=== PATIENT | male | born 1965 | race Caucasian/White ===

== ENCOUNTER → 2017-10-31 | Outpatient (CLI) | payer MEDICARE, MEDICAID ==
[~2017-10-31] MED LIST: ACE3 PO; ACET500T68 PO; ADAL40PE4 SQ; ALBU8.5H IH; ALL300 PO; ALPR-460 PO; AMOX-362 PO; BACOUD TP; CALC1TAB24 PO; CARB1DRO2 OP; CEPH250C37 PO; CETY454C2 TP; CHOL10005 PO; CHOL200021 PO; CIPR3.5O4 OP; CLOB15CR22 TP; DOXY-179 PO; ENBREL INJECTION; GUAI600T57 PO; HYDR28.415 TP; IBUP100T46 PO; KET10 PO; LEVO100T95 PO; LEVO88TA45 PO; LOPE-109 PO; LYTE60SP MM; MENT118G; METH454P5 PO; MULT-991 PO; MULTIVITAMIN PO; NAPR220C11 PO; OMEG300C PO; PER PO; PETR18JE TP; SODI30SP6 NS; [UNRECOGNIZED DRUG - CODE] MC; [UNRECOGNIZED DRUG - CODE] PO; vit d
--- NOTE | 2017-10-31 10:25 | RADIOLOGY IMAGING REPORT ---
[place] [facility] [place]IENT NAME: Jayden Bhatti : 1965 MR: [id number] V: [id number] EXAM DATE: ORDERING PHYSICIAN: CYNDEE ROMAN TECHNOLOGIST: Location: [facility] [place] Patient: Jayden Bhatti : 1965 Visit/Account:[id number] Date of Sevice: 10/31/2017 EXAMINATION: Abdominal ultrasound complete HISTORY: Abdominal pain. COMPARISON: November 18, 2016 FINDINGS: Gallbladder: There are numerous mobile gallstones within the gallbladder. Gallbladder wall does not appear thickened measuring 2.2 mm in thickness. There is a negative Bah sign by technologist teagana tinadya. Liver: Negative. Common duct: Normal measuring 3.2 mm. Pancreas: Negative. Spleen: There is several echogenic masses within the spleen. The largest measures 1.3 cm in diamete r measuring 7.7 cm in length. Kidneys: Normal in size and echogenicity, the right measures 10.6 cm in length, and the left 10.3 cm . No hydronephrosis. Upper abdominal aorta and IVC: Negative. Ascites: Just to the right and superior to the umbilicus is a subcutaneous mass like region measuring 5.1 x 3. 2 x 4.9 cm. This is of mixed echogenicity. On the Valsalva maneuver there appear to be some interna l movement. This could represent a ventral hernia now containing bowel. Other mass lesions not excl uded This area appears slightly increased in size when compared to the prior study. Further evaluati on with CT of the abdomen is recommended for further evaluation. IMPRESSION: Cholelithiasis although no evidence of biliary ductal dilatation Several echogenic masses are seen within the spleen the largest measuring 1.3 cm in diameter. This c ould represent hemangiomas although short-term interval follow-up recommended There is a mass of mixed echogenicity in the subcutaneous soft tissues just superior to the right of the umbilicus measuring 5.1 x 3.2 x 4.9 cm. There appear to be some internal motion on the Valsalva maneuver. This could represent a ventral hernia now containing bowel. Other mass lesions not exclud ed Given the interval change in the prior study CT of abdomen is recommended for further evaluation Report Dictated By: Cookie Piedra MD at 10/31/2017 10:14 AM Report E-Signed By: Cookie Piedra MD at 10/31/2017 10:22 AM WSN:[email or web address]
== END ==
LOC: US 08:51
PROVIDERS: ATTEND Nurse Practitioner Family
DX: K80.70 Calculus of gallbladder and bile duct without cholecystitis without obstruction (principal)
CPT/HCPCS: 76700

== ENCOUNTER 2017-12-16 00:14 | Day surgery (SDC) | payer MEDICARE, MEDICAID ==
[2017-12-16] VITALS (7 sets, daily range): BP systolic 88–106; BP diastolic 65–77
[~2017-12-16] VITALS: Ht 160 cm; Wt 65.8 kg
[~2017-12-16 00:14] MED LIST changes: +ALB18R INH
[2017-12-16] MEDS ORDERED: ROPIVACAINE 0.2% 20 ML VIAL ONE ×2 (06:54→09:11)
[2017-12-16] MEDS ORDERED: fentaNYL CITR 100 MCG/2 ML AMP ONE (07:02)
[2017-12-16] MEDS ORDERED: PROPOFOL EMUL(*) 10MG/ML 20 ML 20 ML ONE (07:03)
[2017-12-16] MEDS ORDERED: ONDANSETRON 4 MG/2 ML VIAL ONE (07:03)
[2017-12-16] MEDS ORDERED: DEXAMETHASONE SOD 4 MG/ML VIAL ONE (07:03)
[2017-12-16] MEDS ORDERED: LIDOCAINE MPF 1% 5 ML VIAL ONE (07:03)
[2017-12-16 07:21] LABS: PLATELET COUNT, AUTOMATED 228 K/uL (150-450)
--- NOTE | 2017-12-16 07:25 | General Surgery 1 H&P ---
History of Present Illness Chief Complaint heartburn and lump above the umbilicus History of Present Illness 52 yo male with down's syndrome , sleep apnea and hiatal hernia repair presents with heartburn and a lump above the umbilicus. he had an ultrasound which revealed 2 hernias above the umbilicus. this hernia is causing him some pain. History Other Past Surgeries: hiatal hernia repair. hernia repair Home Meds Reported Medications Albuterol Sulfate (VENTOLIN HFA) 18 Gm Inh, 1-2 PUFF INH PRN Y for SHORTNESS OF BREATH, INH 12/10/17 Cholecalciferol (Vitamin D3) (VITAMIN D3) 1,000 Unit Tablet, 2000 UNIT PO DAILY , TAB 05/02/16 Petrolatum,White (VASELINE) 18 Ml Jelly.ml., 18 ML TP BID 05/02/16 Sodium Chloride (SALINE NASAL SPRAY) 30 Ml [place], 30 ML NS TID, SPRAY 05/02/16 Sodium Chloride (SALINE NASAL SPRAY) 30 Ml [place], 30 ML NS, SPRAY 05/02/16 Guaifenesin/D-Methorphan Hb/Pe (ROBAFEN CF LIQUID) 118 Ml Liquid, 5 ML PO PRN Y for CONGESTION 05/02/16 Carboxymethyl/Gly/Poly80/Pf (REFRESH OPTIVE ADVANCED DROPS) 1 Each Droperette, 1 EACH OP DIRECTED 05/02/16 [place] Oil (OLIVE OIL) 480 Ml Oil, 480 ML MC DAILY 05/02/16 Lytes/Yerba Yasemin (MOUTHKOTE SOLUTION) 60 Ml [place], 60 ML MM TID, SPRAY 05/02/16 Ibuprofen (IBUPROFEN) 100 Mg Tab.chew, 2 TAB PO Q6H Y for PAIN, TAB.CHEW 05/02/16 Hydrocortisone/Aloe Vera (HYDROCORTISONE 1% OINTMENT) 28 Gm Oint...g., 28 GM TP 05/02/16 Multivitamin (GUMMI BEAR MULTIVITAMIN) 1 Each Tab.chew, 1 EACH PO DAILY, TAB.CHEW 05/02/16 [place]-3 Fatty Acids (FISH OIL) 300 Mg Capsule, 300 MG PO DAILY, CAPSULE 05/02/16 Methylcellulose (With Sugar) (CITRUCEL POWDER) 454 Gm Powder, 454 GM PO DAILY 05/02/16 Cetyl Alc/Stearyl Alc/Pg/Sls (CETAPHIL CREAM) 454 Gm Cream..g., 454 GM TP 05/02/16 Menthol (BIOFREEZE) 118 Ml Gel..ml. 05/02/16 Bacitracin (BACITRACIN ZINC) 0.9 Gm Oint, 0.9 GM TP PRN Y for RASH 05/02/16 Loperamide Hcl (ANTI-DIARRHEAL) 2 Mg Tablet, 2 TAB PO PRN Y for DIARRHEA 05/02/16 Calcium Carbonate/Mag Hydrox (ANTACID CHEWABLE TABLET) 1 Each Tab.chew, 2 EACH PO PRN Y for HEARTBURN, TAB.CHEW 05/02/16 Amoxicillin (AMOXICILLIN) 500 Mg Capsule, 4 CAP PO DIRECTED, #15 CAPSULE 05/02/16 Acetaminophen (TYLENOL EXTRA STRENGTH) 500 Mg Tablet, 1000 MG PO PRN Y for PAIN , TAB 05/02/16 Guaifenesin (MUCINEX) 600 Mg Tablet.er, 1 TAB PO PRN 04/11/16 Levothyroxine Sodium (LEVOTHYROXINE SODIUM) 88 Mcg Tablet, 88 MCG PO QDAY 03/26/16 Naproxen Sodium (NAPROXEN SODIUM) 220 Mg Capsule, 220 MG PO TID, CAPSULE 07/20/13 Allopurinol (ZYLOPRIM 300 MG TAB (OR EQUIV)) 300 Mg Tablet, 300 MG PO QDAY 07/20/13 Adalimumab (HUMIRA) 40 Mg/0.8 Ml Pen.ij.kit, 40 MG SQ every other week 07/20/13 Alprazolam (ALPRAZOLAM) 0.5 Mg Tab.rapdis, 0.5 MG PO PRN 07/20/13 Discontinued Reported Medications Clobetasol Propionate/Emoll (CLOBETASOL EMOLLIENT 0.05% CRM) 15 Gm Cream..g., 0 TP BID 05/02/16 Ciprofloxacin Hcl (CILOXAN) 3.5 Gm Oint...g., 3.5 GM OP HS 05/02/16 Discontinued Scripts Oxycodone/Acetaminophen (OXYCODONE/ACETAMINOPHEN 5MG/325 MG) 5 Mg/325 Mg Tab, 1 TAB PO Q4H Y for MODERATE PAIN, #30 TAB 0 Refills Prov:STEPHANIE PUGH MD 05/17/16 Doxycycline Hyclate (DOXYCYCLINE HYCLATE) 100 Mg Tablet, 100 MG PO BID, #0 TAB Prov:RICHARD COX MD 04/12/16 Allergies: Coded Allergies: latex (Verified Allergy, Unknown, 03/26/16) Review of Systems History of Hypertension?: No History of Diabetes?: No History of DVT?: No Obstructive Sleep Apnea?: Yes History of Liver Disease?: No History of Kidney Disease?: No Other ROS Findings: gout, down's syndrome Exam General Appearance: Alert, Awake, No Acute Distress Cardiovascular: Regular Rate and Rhythm Respiratory: Clear to Auscultation GI: Other (nonreducilbe mass above the umbilicus.) Assessment and Plan Problems: (1) Incarcerated epigastric hernia Assessment & Plan: repair hernia with mesh (2) Heartburn Assessment & Plan: egd Copies to: ROWAN DAN MD; CYNDEE ROMAN Venous Thromboembolism Antithrombotics Is Pt On Any Antithrombotics?: No ROWAN DAN MD Dec 16, 2017 07:25
[2017-12-16] MEDS ORDERED: LIDOCAINE/SOD BICARB 8.4% SYR ID ONE (07:40)
[2017-12-16] MEDS ORDERED: MIDAZOLAM 2 MG/2 ML VIAL IVP PRN (07:40)
[2017-12-16] MEDS ORDERED: NORMOSOL R SOLN(*) 1000 ML BAG 1,000 ML IV PRN (07:40)
[2017-12-16] MEDS ORDERED: ceFAZolin(*) 2GM/D5W 50ML 50 ML IVPB ONE (07:55)
--- NOTE | 2017-12-16 08:23 | Post Operative Progress Note ---
Post Operative Progress Note Date: Dec 16, 2017 Time: 09:38 Surgeon: keisha Anesthesia: dr mullen Pre-Op Diagnosis: heartburn, incarcerated epigastric hernia Post-Op Diagnosis: poor esophageal emptying, incarcerated epigastric hernia Procedure(s): egd and repair of incarcerated epigastric hernia with mesh ROWAN DAN MD Dec 16, 2017 08:23
[2017-12-16] MEDS ORDERED: HYDR-4309 PO (08:25)
[2017-12-16] MEDS ORDERED: PANT40TA65 PO (08:25)
--- NOTE | 2017-12-16 08:26 | Short(Outpt) Discharge Summary ---
Discharge Summary Reason for Hosp/Final Diag: (1) Incarcerated epigastric hernia Hospital Course & Plan: repair hernia with mesh 8 cm [place] (2) Heartburn Hospital Course & Plan: egd poor esophageal emptying Departure Discharge to: Home Discharge Instructions Home Meds Active Scripts Hydrocodone Bit/Acetaminophen (NORCO 5-325 TABLET) 1 Each Tablet, 1 EACH PO Q4H Y for PAIN, #30 TAB Prov:ROWAN DAN MD 12/16/17 Pantoprazole Sodium (PANTOPRAZOLE SODIUM) 40 Mg Tablet.dr, 40 MG PO QDAY, #60 TAB.SR 3 Refills Prov:ROWAN DAN MD 12/16/17 Reported Medications Albuterol Sulfate (VENTOLIN HFA) 18 Gm Inh, 1-2 PUFF INH PRN Y for SHORTNESS OF BREATH, INH 12/10/17 Cholecalciferol (Vitamin D3) (VITAMIN D3) 1,000 Unit Tablet, 2000 UNIT PO DAILY , TAB 05/02/16 Petrolatum,White (VASELINE) 18 Ml Jelly.ml., 18 ML TP BID 05/02/16 Sodium Chloride (SALINE NASAL SPRAY) 30 Ml [place], 30 ML NS TID, SPRAY 05/02/16 Sodium Chloride (SALINE NASAL SPRAY) 30 Ml [place], 30 ML NS, SPRAY 05/02/16 Guaifenesin/D-Methorphan Hb/Pe (ROBAFEN CF LIQUID) 118 Ml [place], 5 ML PO PRN Y for CONGESTION 05/02/16 Carboxymethyl/Gly/Poly80/Pf (REFRESH OPTIVE ADVANCED DROPS) 1 Each [place], 1 EACH OP DIRECTED 05/02/16 [place] Oil (OLIVE OIL) 480 Ml Oil, 480 ML MC DAILY 05/02/16 Lytes/Yerba Yasemin (MOUTHKOTE SOLUTION) 60 Ml [place], 60 ML MM TID, SPRAY 05/02/16 Ibuprofen (IBUPROFEN) 100 Mg Tab.chew, 2 TAB PO Q6H Y for PAIN, TAB.CHEW 05/02/16 Hydrocortisone/Aloe Vera (HYDROCORTISONE 1% OINTMENT) 28 Gm Oint...g., 28 GM TP 05/02/16 Multivitamin (GUMMI BEAR MULTIVITAMIN) 1 Each Tab.chew, 1 EACH PO DAILY, TAB.CHEW 05/02/16 [place]-3 Fatty Acids (FISH OIL) 300 Mg Capsule, 300 MG PO DAILY, CAPSULE 05/02/16 Methylcellulose (With Sugar) (CITRUCEL POWDER) 454 Gm Powder, 454 GM PO DAILY 05/02/16 Cetyl Alc/Stearyl Alc/Pg/Sls (CETAPHIL CREAM) 454 Gm Cream..g., 454 GM TP 05/02/16 Menthol (BIOFREEZE) 118 Ml Gel..ml. 05/02/16 Bacitracin (BACITRACIN ZINC) 0.9 Gm Oint, 0.9 GM TP PRN Y for RASH 05/02/16 Loperamide Hcl (ANTI-DIARRHEAL) 2 Mg Tablet, 2 TAB PO PRN Y for DIARRHEA 05/02/16 Calcium Carbonate/Mag Hydrox (ANTACID CHEWABLE TABLET) 1 Each Tab.chew, 2 EACH PO PRN Y for HEARTBURN, TAB.CHEW 05/02/16 Amoxicillin (AMOXICILLIN) 500 Mg Capsule, 4 CAP PO DIRECTED, #15 CAPSULE 05/02/16 Acetaminophen (TYLENOL EXTRA STRENGTH) 500 Mg Tablet, 1000 MG PO PRN Y for PAIN , TAB 05/02/16 Guaifenesin (MUCINEX) 600 Mg Tablet.er, 1 TAB PO PRN 04/11/16 Levothyroxine Sodium (LEVOTHYROXINE SODIUM) 88 Mcg Tablet, 88 MCG PO QDAY 03/26/16 Naproxen Sodium (NAPROXEN SODIUM) 220 Mg Capsule, 220 MG PO TID, CAPSULE 07/20/13 Allopurinol (ZYLOPRIM 300 MG TAB (OR EQUIV)) 300 Mg Tablet, 300 MG PO QDAY 07/20/13 Adalimumab (HUMIRA) 40 Mg/0.8 Ml Pen.ij.kit, 40 MG SQ every other week 07/20/13 Alprazolam (ALPRAZOLAM) 0.5 Mg Tab.rapdis, 0.5 MG PO PRN 07/20/13 Discontinued Reported Medications Clobetasol Propionate/Emoll (CLOBETASOL EMOLLIENT 0.05% CRM) 15 Gm Cream..g., 0 TP BID 05/02/16 Ciprofloxacin Hcl (CILOXAN) 3.5 Gm Oint...g., 3.5 GM OP HS 05/02/16 Discontinued Scripts Oxycodone/Acetaminophen (OXYCODONE/ACETAMINOPHEN 5MG/325 MG) 5 Mg/325 Mg Tab, 1 TAB PO Q4H Y for MODERATE PAIN, #30 TAB 0 Refills Prov:STEPHANIE PUGH MD 05/17/16 Doxycycline Hyclate (DOXYCYCLINE HYCLATE) 100 Mg Tablet, 100 MG PO BID, #0 TAB Prov:RICHARD COX MD 04/12/16 Diet: Regular Activity: No Heavy Lifting Special Instructions: ice to incision for 48 hours remove bandage and shower to see me in one week, call [phone] for apt ROWAN DAN MD Dec 16, 2017 08:26
[2017-12-16] MEDS ORDERED: KETOROLAC 30 MG/ML VIAL ONE (08:30)
[2017-12-16] MEDS ORDERED: ROCURONIUM BROM 10 MG/ML 5 ML ONE (08:30)
[2017-12-16] MEDS ORDERED: ePHEDrine 25 MG/5 ML DISP.SYR IVP ONE (08:40)
[2017-12-16] MEDS ORDERED: PHENYLEPHRINE/NS/PF 0.4MG/10ML ONE (08:40)
[2017-12-16] MEDS ORDERED: SUGAMMADEX SOD 200 MG/2 ML SDV ONE (09:05)
--- NOTE | 2017-12-16 16:31 | OPERATIVE REPORT 1 ---
EVENT DATE: December 16, 2017 SURGEON: Rick Walters MD ANESTHESIOLOGIST: Jeromy Hyatt MD ANESTHESIA: General. PREOPERATIVE DIAGNOSIS Heartburn. POSTOPERATIVE DIAGNOSIS Poorly emptying esophagus; otherwise, normal exam. PROCEDURE PERFORMED Esophagogastroduodenoscopy. DESCRIPTION OF PROCEDURE The patient was placed in the supine position and given general anesthetic. The flexible gastroscope was inserted. He had some fluid in the esophagus, and this was suctioned out. However, the esophagus distended nicely. There was no inflammation or irritation. The scope passed through the GE junction easily which was around 42 cm. The stomach was empty. It passed through the pylorus and into the second and third portions of the duodenum. He did not really have a curve to the duodenum, but there was no inflammation or ulceration noted. The pylorus was normal. The antrum was normal. The body of the stomach was normal. The scope was retroflexed. There were no fundic lesions. I could not identify a hiatal hernia. He did not seem to have an intact hiatal hernia wrap. The scope was then slowly withdrawn. I carefully looked at the GE junction again. Again, no stricture, narrowing, inflammation, or ulceration was noted. The more proximal esophagus appeared to be normal except for the fluid that he had in the esophagus which was suctioned out. I could not identify any lesions. The procedure was terminated. The patient tolerated the procedure well. No apparent complication. MTDD
--- NOTE | 2017-12-16 16:52 | OPERATIVE REPORT 1 ---
EVENT DATE: December 16, 2017 SURGEON: Rick Walters MD ANESTHESIOLOGIST: Jeromy Hyatt MD ANESTHESIA: General. PREOPERATIVE DIAGNOSIS Incarcerated epigastric hernia. POSTOPERATIVE DIAGNOSIS Incarcerated epigastric hernia. PROCEDURE PERFORMED Incarcerated epigastric hernia repair. DESCRIPTION OF PROCEDURE The patient was placed in the supine position and given general anesthetic. He had a lump palpable just above the umbilicus just leaning off to the right of the midline. We made a transverse incision and carried it down through the skin and subcutaneous tissue, down to the level of the fascia. We dissected circumferentially there with electrocautery. We then incised the fascia 1 mm away from the edge of the hernia with electrocautery and tried to get into the preperitoneal space. We were able to reduce this hernia, and we did get into the peritoneum. We were unable to make a preperitoneal pocket for the mesh. We did use an 8 cm large [place] mesh with a nonstick surface and arms on it. It was placed into position. We sutured it laterally to the fascia with interrupted horizontal mattress stitches of 0 Vicryl. We then reapproximated the fascia in the midline, incorporating the mesh with interrupted 0 Vicryl. We cut the arms off and sutured them down to the anterior abdominal wall with 0 Vicryl. We then injected 40 mL of 0.2% ropivacaine in the muscle and subcutaneous tissue. The subcutaneous tissue was reapproximated with 2-0 chromic. The skin was closed with interrupted 4-0 [place]. Steri-Strips and an Airstrip were placed. The patient tolerated the procedure well. No apparent complications. [facility]ITAL[facility]annah
== END 2017-12-16 10:25 | disposition home or self-care (01) ==
LOC: OR 00:14
PROVIDERS: ATTEND Surgery
DX: K43.6 Other and unspecified ventral hernia with obstruction, without gangrene (principal); K22.8 Other specified diseases of esophagus; M10.9 Gout, unspecified; E11.9 Type 2 diabetes mellitus without complications
CPT/HCPCS: 36416; 43235; 49572; 82948; 85025; J1100; J1885; J2001; J2370; J2405; J2704; J2795; J3010; J0690

== ENCOUNTER → 2018-02-03 | Outpatient (CLI) | payer MEDICARE, MEDICAID ==
[~2018-02-03] MED LIST changes: +BARIUM SULFATE 176 GM BTL PO ONE; +BARIUM SULFATE 340 GM POWD ONE; +HYDR-4309 PO; +PANT40TA65 PO
--- NOTE | 2018-02-03 16:37 | RADIOLOGY IMAGING REPORT ---
FACILITY: [facility] - [place] PATIENT NAME: Jayden Bhatti : 1965 MR: [id number] V: [id number] EXAM DATE: [id number] ORDERING PHYSICIAN: STEPHANIE CAMERON TECHNOLOGIST: Location: [facility] Patient: Jayden Bhatti : 1965 Visit/Account:[id number] Date of Sevice: 02/03/2018 Exam type: ESOPHAGRAM History: Abnormal chest x-ray with air-fluid level in the esophagus Comparison: Two-view chest January 29, 2018. Findings: Condenser Operator film of the chest reveals right hilar prominence similar to the prior study Double contrast esophagram was performed with thick and thin barium. There is a high-grade narrowing at the junction of the cervical and thoracic esophagus. Also noted is a high-grade narrowing in the distal esophagus with failure of a 12 mm barium tablet to pass into the stomach. A large amount of retained secretions are seen within the esophagus. By history the patient had not received anything but water during the morning. There is very slow passage of the barium into the stomach. Mucosal pa ttern was difficult to evaluate due to large amount of retained secretions. The fluoroscopy dose are a product 245.09 micro-Kendall per meter squared IMPRESSION: 1. High-grade narrowings identified at the cervical thoracic junction of the esophagus and at the lo wer esophageal sphincter. A 12 mm barium tablet failed to pass freely into the stomach. There is a large amount of retained secretions within the esophagus precluding evaluation of the muco kitty pattern. A large amount of barium pooled within the esophagus due to very slow passage into the stomach. Endoscopy recommended for further evaluation. Report Dictated By: Cookie Piedra MD at 02/03/2018 4:25 PM Report E-Signed By: Cookie Piedra MD at 02/03/2018 4:33 PM WSN:[email or web address]
== END ==
LOC: US 00:56
PROVIDERS: ATTEND Surgery
DX: K22.2 Esophageal obstruction (principal)
CPT/HCPCS: 74220

== ENCOUNTER 2018-02-19 18:08 | Inpatient (IN) | payer MEDICARE, MEDICAID ==
[~2018-02-19] VITALS: Ht 154.9 cm; Wt 73.1 kg
[~2018-02-19 18:08] MED LIST changes: -CALC625T65 PO; -CIT500PT PO; -GLYCOPYRROLATE 0.2MG/ML 1 ML INJ IVP ONE; -IBUP-56 PO; -LIDOCAINE MPF 1% 5 ML VIAL ONE; -LIDOCAINE/SOD BICARB 8.4% SYR ID ONE; -NORMOSOL R SOLN(*) 1000 ML BAG 1,000 ML IV PRN; -PROPOFOL EMUL(*) 10MG/ML 20 ML 40 ML ONE; -SODI15DR18 OU; -SODI3.5O14 OU; -TRIA60LO10 TP
--- NOTE | 2018-02-19 18:30 | ER Report ---
History and Physical Time Seen By : 18:30 Hx. of Stated Complaint: Care provider reporting that pt is reporting severe headache and cold hands since lunchtime. Pt is reporting severe pain in the middle of his head. Pt states it feels like his head is splitting open. HPI/ROS CHIEF COMPLAINT: Headache HISTORY OF PRESENT ILLNESS: This is a 53 year old male. He was seen earlier today by Dr. Walters for difficulty swallowing. Upper GI showed food bolus in the esophagus. EGD and dilation was performed and he returned home. He was doing normally after this. Later on in the afternoon he developed headache. He said he felt like his hands were cold. No vomiting. He does have a mild sore throat. No coughing. No fevers. The patient is able to give a limited history based on his disability from his Down syndrome. He denies having any pain in his back or neck. Denies any pain in the extremities. Denies chest pain. Denies trouble breathing. Other than complaining of headache, caregivers state that he is acting normally otherwise. They report he normally has a very high pain threshold's so this would be abnormal for him. He does try to make small talked with me, caregivers say that this is his normal behavior pattern. REVIEW OF SYSTEMS: Unable other than above. Allergies: Coded Allergies: No Known Drug Allergies (Unverified , 12/16/17) Home Meds Active Scripts Hydrocodone Bit/Acetaminophen (NORCO 5-325 TABLET) 1 Each Tablet, 1 EACH PO Q4H Y for PAIN, #30 TAB Prov:ROWAN WALTERS MD 12/16/17 Pantoprazole Sodium (PANTOPRAZOLE SODIUM) 40 Mg Tablet.dr, 40 MG PO QDAY, #60 TAB.SR 3 Refills Prov:ROWAN WALTERS MD 12/16/17 Reported Medications Albuterol Sulfate (VENTOLIN HFA) 18 Gm Inh, 1-2 PUFF INH PRN Y for SHORTNESS OF BREATH, INH 12/10/17 Cholecalciferol (Vitamin D3) (VITAMIN D3) 1,000 Unit Tablet, 2000 UNIT PO DAILY , TAB 05/02/16 Petrolatum,White (VASELINE) 18 Ml Jelly.ml., 18 ML TP BID 05/02/16 Sodium Chloride (SALINE NASAL SPRAY) 30 Ml [place], 30 ML NS TID, SPRAY 05/02/16 Sodium Chloride (SALINE NASAL SPRAY) 30 Ml [place], 30 ML NS, SPRAY 05/02/16 Guaifenesin/D-Methorphan Hb/Pe (ROBAFEN CF LIQUID) 118 Ml Liquid, 5 ML PO PRN Y for CONGESTION 05/02/16 Carboxymethyl/Gly/Poly80/Pf (REFRESH OPTIVE ADVANCED DROPS) 1 Each Droperette, 1 EACH OP DIRECTED 05/02/16 [place] Oil (OLIVE OIL) 480 Ml Oil, 480 ML MC DAILY 05/02/16 Lytes/Yerba Yasemin (MOUTHKOTE SOLUTION) 60 Ml [place], 60 ML MM TID, SPRAY 05/02/16 Ibuprofen (IBUPROFEN) 100 Mg Tab.chew, 2 TAB PO Q6H Y for PAIN, TAB.CHEW 05/02/16 Hydrocortisone/Aloe Vera (HYDROCORTISONE 1% OINTMENT) 28 Gm Oint...g., 28 GM TP 05/02/16 Multivitamin (GUMMI BEAR MULTIVITAMIN) 1 Each Tab.chew, 1 EACH PO DAILY, TAB.CHEW 05/02/16 [place]-3 Fatty Acids (FISH OIL) 300 Mg Capsule, 300 MG PO DAILY, CAPSULE 05/02/16 Methylcellulose (With Sugar) (CITRUCEL POWDER) 454 Gm Powder, 454 GM PO DAILY 05/02/16 Cetyl Alc/Stearyl Alc/Pg/Sls (CETAPHIL CREAM) 454 Gm Cream..g., 454 GM TP 05/02/16 Menthol (BIOFREEZE) 118 Ml Gel..ml. 05/02/16 Bacitracin (BACITRACIN ZINC) 0.9 Gm Oint, 0.9 GM TP PRN Y for RASH 05/02/16 Loperamide Hcl (ANTI-DIARRHEAL) 2 Mg Tablet, 2 TAB PO PRN Y for DIARRHEA 05/02/16 Calcium Carbonate/Mag Hydrox (ANTACID CHEWABLE TABLET) 1 Each Tab.chew, 2 EACH PO PRN Y for HEARTBURN, TAB.CHEW 05/02/16 Acetaminophen (TYLENOL EXTRA STRENGTH) 500 Mg Tablet, 1000 MG PO PRN Y for PAIN , TAB 05/02/16 Guaifenesin (MUCINEX) 600 Mg Tablet.er, 1 TAB PO PRN 04/11/16 Levothyroxine Sodium (LEVOTHYROXINE SODIUM) 88 Mcg Tablet, 88 MCG PO QDAY 03/26/16 Naproxen Sodium (NAPROXEN SODIUM) 220 Mg Capsule, 220 MG PO TID, CAPSULE 07/20/13 Allopurinol (ZYLOPRIM 300 MG TAB (OR EQUIV)) 300 Mg Tablet, 300 MG PO QDAY 07/20/13 Adalimumab (HUMIRA) 40 Mg/0.8 Ml Pen.ij.kit, 40 MG SQ every other week 07/20/13 Alprazolam (ALPRAZOLAM) 0.5 Mg Tab.rapdis, 0.5 MG PO PRN 07/20/13 Discontinued Reported Medications Amoxicillin (AMOXICILLIN) 500 Mg Capsule, 4 CAP PO DIRECTED, #15 CAPSULE 05/02/16 Past Medical/Surgical History Down syndrome, heart murmur, chokes easily when eating with ongoing vomiting, history of hernia repairs, gout, hypothyroidism, psoriasis, fear ReFlex syndrome , history of esophageal dilation, bilateral cataract surgery Hx Smoking: No Smoking Status: Never Smoker Hx Alcohol Use: No Constitutional Vital Sign - Last 24 Hours 02/19/18 02/19/18 02/19/18 02/19/18 18:18 18:18 18:19 18:23 Temp 99.1 Pulse 90 91 Resp 16 B/P (MAP) 108/69 98/66 (77) 108/69 (82) Pulse Ox 93 95 O2 Delivery Room Air 02/19/18 02/19/18 02/19/18 02/19/18 18:30 18:38 18:53 19:00 Pulse 81 83 Resp 41 B/P (MAP) 106/57 (73) 99/62 (74) 103/65 (78) Pulse Ox 95 93 02/19/18 02/19/18 02/19/18 02/19/18 19:05 19:20 19:30 19:35 Pulse 89 ??? 78 B/P (MAP) 108/54 (72) Pulse Ox 96 92 02/19/18 02/19/18 02/19/18 02/19/18 19:45 19:50 20:00 20:02 Temp 100.9 Pulse 78 B/P (MAP) 99/61 (74) 102/63 (76) Pulse Ox 90 02/19/18 02/19/18 02/19/18 02/19/18 20:05 20:10 20:15 20:25 Pulse 83 82 82 Resp 23 28 25 B/P (MAP) 96/54 (68) Pulse Ox 92 92 92 02/19/18 02/19/18 02/19/18 02/19/18 20:40 20:45 20:50 21:00 Pulse 83 81 Resp 18 B/P (MAP) 102/67 (79) 104/62 (76) Pulse Ox 98 92 02/19/18 02/19/18 02/19/18 02/19/18 21:34 21:35 21:40 21:45 Pulse 76 Resp 15 15 B/P (MAP) 95/57 (70) 95/58 (70) Pulse Ox 90 89 02/19/18 02/19/18 02/19/18 02/19/18 21:55 22:00 22:15 22:30 Pulse 79 74 Resp 20 19 B/P (MAP) 86/51 (63) 91/56 (68) 97/51 (66) Pulse Ox 89 89 90 Physical Exam General Appearance: The patient is alert. No immediate need for airway protection. No acute distress. Small talk with me during exam. Eyes: Pupils are round. Reactive to light. No pallor, injection or icterus. Extraocular movements are intact. ENT: Mucous membranes are dry. Normal oral mucosa with some food particles throughout the mouth. Posterior oropharynx does have some erythema. Normal nasal mucosa. Normal tympanic membranes and canals. Neck: Supple and non tender. No lymphadenopathy. Respiratory: Breathing easily and unlabored. Lungs are clear to auscultation. Cardiovascular: Regular rate and rhythm. 3/6 murmur, holosystolic. Normal capillary refill. Gastrointestinal: Abdomen is soft and non tender. Nondistended. Normal active bowel sounds. No costovertebral angle tenderness with percussion. Neurological: Alert and oriented x3. No focal neurologic deficits noted on exam , but unable to fully test. Skin: Warm and dry. No rashes. Musculoskeletal: Extremities are nontender. Full range of motion of the extremities. No sensory deficits. No tenderness in palpation of the cervical, thoracic and lumbar spine. DIFFERENTIAL DIAGNOSIS: After history and physical exam, differential diagnosis was considered for headache including but not limited to subarachnoid hemorrhage , migraine headache, tension headache and infectious causes such as meningitis, pharyngitis and sinusitis. Medical Decision Making Data Points Result Diagram: 02/19/18 0000 02/19/18 0000 Laboratory Hematology Test 02/19/18 00:00 02/19/18 19:55 02/19/18 20:34 Red Blood Count 4.65 M/uL (4.00-5.60) Mean Corpuscular Volume 98.4 fL (80.0-96.0) Mean Corpuscular Hemoglobin 33.4 pg (26.0-33.0) Mean Corpuscular Hemoglobin Concent 33.9 g/dL (32.0-36.0) Red Cell Distribution Width 16.3 % (11.5-14.5) Mean Platelet Volume 7.6 fL (7.2-11.1) Neutrophils (%) (Auto) 91.8 % (39.4-72.5) Lymphocytes (%) (Auto) 4.2 % (17.6-49.6) Monocytes (%) (Auto) 3.5 % (4.1-12.4) Eosinophils (%) (Auto) 0.4 % (0.4-6.7) Basophils (%) (Auto) 0.1 % (0.3-1.4) Nucleated RBC Relative Count (auto) 0.0 /100WBC Neutrophils # (Auto) 12.1 K/uL (2.0-7.4) Lymphocytes # (Auto) 0.5 K/uL (1.3-3.6) Monocytes # (Auto) 0.5 K/uL (0.3-1.0) Eosinophils # (Auto) 0.1 K/uL (0.0-0.5) Basophils # (Auto) 0.0 K/uL (0.0-0.1) Nucleated RBC Absolute Count (auto) 0.00 K/uL Erythrocyte Sedimentation Rate 28 mm/HOUR (0-20) Sodium Level 141 mmol/L (137-145) Potassium Level 3.5 mmol/L (3.5-5.0) Chloride Level 100 mmol/L (98-107) Carbon Dioxide Level 29 mmol/L (22-30) Blood Urea Nitrogen 16 mg/dl (9-21) Creatinine 0.90 mg/dl (0.66-1.25) Glomerular Filtration Rate Calc > 60.0 Random Glucose 99 mg/dl (75-110) Calcium Level 9.8 mg/dl (8.4-10.2) Total Bilirubin 0.8 mg/dl (0.2-1.3) Aspartate Amino Transf (AST/SGOT) 23 U/L (0-35) Alanine Aminotransferase (ALT/SGPT) 23 U/L (0-56) Alkaline Phosphatase 106 U/L (0-126) C-Reactive Protein 2.5 mg/dl (<1.0) Total Protein 7.9 gm/dl (6.3-8.2) Albumin 3.9 g/dl (3.5-5.0) Influenza Virus Type A (PCR) Negative (NEGATIVE) Influenza Virus Type B (PCR) Negative (NEGATIVE) Urine Color Yellow Urine Clarity Clear Urine pH 8.0 pH (4.8-9.5) Urine Specific [place] 1.012 Urine Protein Negative mg/dL (NEGATIVE) Urine Glucose (UA) Negative mg/dL (NEGATIVE) Urine Ketones Negative mg/dL (NEGATIVE) Urine Blood Negative (NEGATIVE) Urine Nitrite Negative (NEGATIVE) Urine Bilirubin Negative (NEGATIVE) Urine Urobilinogen Negative mg/dL (0.2-1.9) Urine Leukocyte Esterase Negative (NEGATIVE) Urine RBC None /HPF (0-2/HPF) Urine WBC <1 /HPF (0-5/HPF) Urine Squamous Epithelial Cells None /LPF (NONE-FEW) Urine Bacteria Negative /HPF (NONE-FEW) Urine Mucus None /HPF (NONE-FEW) Chemistry Test 02/19/18 00:00 02/19/18 19:55 02/19/18 20:34 White Blood Count 13.1 k/uL (4.5-11.0) Red Blood Count 4.65 M/uL (4.00-5.60) Hemoglobin 15.5 g/dL (14.0-18.0) Hematocrit 45.7 % (42.0-52.0) Mean Corpuscular Volume 98.4 fL (80.0-96.0) Mean Corpuscular Hemoglobin 33.4 pg (26.0-33.0) Mean Corpuscular Hemoglobin Concent 33.9 g/dL (32.0-36.0) Red Cell Distribution Width 16.3 % (11.5-14.5) Platelet Count 245 K/uL (150-450) Mean Platelet Volume 7.6 fL (7.2-11.1) Neutrophils (%) (Auto) 91.8 % (39.4-72.5) Lymphocytes (%) (Auto) 4.2 % (17.6-49.6) Monocytes (%) (Auto) 3.5 % (4.1-12.4) Eosinophils (%) (Auto) 0.4 % (0.4-6.7) Basophils (%) (Auto) 0.1 % (0.3-1.4) Nucleated RBC Relative Count (auto) 0.0 /100WBC Neutrophils # (Auto) 12.1 K/uL (2.0-7.4) Lymphocytes # (Auto) 0.5 K/uL (1.3-3.6) Monocytes # (Auto) 0.5 K/uL (0.3-1.0) Eosinophils # (Auto) 0.1 K/uL (0.0-0.5) Basophils # (Auto) 0.0 K/uL (0.0-0.1) Nucleated RBC Absolute Count (auto) 0.00 K/uL Erythrocyte Sedimentation Rate 28 mm/HOUR (0-20) Glomerular Filtration Rate Calc > 60.0 Calcium Level 9.8 mg/dl (8.4-10.2) Total Bilirubin 0.8 mg/dl (0.2-1.3) Aspartate Amino Transf (AST/SGOT) 23 U/L (0-35) Alanine Aminotransferase (ALT/SGPT) 23 U/L (0-56) Alkaline Phosphatase 106 U/L (0-126) C-Reactive Protein 2.5 mg/dl (<1.0) Total Protein 7.9 gm/dl (6.3-8.2) Albumin 3.9 g/dl (3.5-5.0) Influenza Virus Type A (PCR) Negative (NEGATIVE) Influenza Virus Type B (PCR) Negative (NEGATIVE) Urine Color Yellow Urine Clarity Clear Urine pH 8.0 pH (4.8-9.5) Urine Specific [place] 1.012 Urine Protein Negative mg/dL (NEGATIVE) Urine Glucose (UA) Negative mg/dL (NEGATIVE) Urine Ketones Negative mg/dL (NEGATIVE) Urine Blood Negative (NEGATIVE) Urine Nitrite Negative (NEGATIVE) Urine Bilirubin Negative (NEGATIVE) Urine Urobilinogen Negative mg/dL (0.2-1.9) Urine Leukocyte Esterase Negative (NEGATIVE) Urine RBC None /HPF (0-2/HPF) Urine WBC <1 /HPF (0-5/HPF) Urine Squamous Epithelial Cells None /LPF (NONE-FEW) Urine Bacteria Negative /HPF (NONE-FEW) Urine Mucus None /HPF (NONE-FEW) Urinalysis Test 02/19/18 20:34 Urine Color Yellow Urine Clarity Clear Urine pH 8.0 pH (4.8-9.5) Urine Specific [place] 1.012 Urine Protein Negative mg/dL (NEGATIVE) Urine Glucose (UA) Negative mg/dL (NEGATIVE) Urine Ketones Negative mg/dL (NEGATIVE) Urine Blood Negative (NEGATIVE) Urine Nitrite Negative (NEGATIVE) Urine Bilirubin Negative (NEGATIVE) Urine Urobilinogen Negative mg/dL (0.2-1.9) Urine Leukocyte Esterase Negative (NEGATIVE) Urine RBC None /HPF (0-2/HPF) Urine WBC <1 /HPF (0-5/HPF) Urine Squamous Epithelial Cells None /LPF (NONE-FEW) Urine Bacteria Negative /HPF (NONE-FEW) Urine Mucus None /HPF (NONE-FEW) EKG/Imaging Imaging CHEST SINGLE AP History: Headache, EGD today. Comparison 09/05/2016. FINDINGS: Mild pulmonary vascular congestion. No consolidation, effusion or pneumothorax. Heart size within normal limits. IMPRESSION: Mild pulmonary vascular congestion. Report Dictated By: Danilo Solano MD at 02/19/2018 7:41 PM EXAMINATION: Head CT without intravenous contrast History: Headache TECHNIQUE: Contiguous axial images were obtained from the skull base to the vertex without intravenous contrast. One of the following dose optimization techniques was utilized in the performance of this exam: Automated exposure control; adjustment of the mA and/or kV according to the patient's size; or use of an iterative reconstruction technique. Specific details can be referenced in the facility's radiology CT exam operational policy. COMPARISON STUDIES: none FINDINGS: Visualized mastoid air cells / paranasal sinuses: negative Calvarium and scalp: negative White matter: negative Dural venous sinuses / arterial structures: negative Ventricles / sulci / fissures: Mildly prominent due to volume loss. Masses / hemorrhage / midline shift: negative Extra-axial spaces: negative IMPRESSION: No evidence of acute intracranial pathology. Report Dictated By: Danilo Solano MD at 02/19/2018 7:[address] of the neck and chest with contrast: Indication: Fever. The patient had upper endoscopy earlier today. Technique: Helical CT was performed through the neck and chest following IV contrast enhancement with 75 cc of Isovue-370. Multiplanar reconstructions are reviewed. Image quality is limited, due to patient motion artifact. One of the following dose optimization techniques was utilized in the performance of this exam: Automated exposure control; adjustment of the mA and/or kV according to the patient's size; or use of an iterative reconstruction technique. Specific details can be referenced in the facility's radiology CT exam operational policy. Comparison: None. Findings: Neck: There is no evidence of soft tissue mass, fluid collection, inflammatory process, or air in the soft tissues of the neck. No acute skeletal deformity is identified. There are diffuse degenerative changes in the cervical spine. Mediastinum: There is diffuse dilatation of the esophagus, similar to a fluoroscopy study on 02/03/2018. There is no evidence of pneumomediastinum or mediastinal fluid collection. The vascular structures appear unremarkable. The heart appears enlarged. A small pericardial effusion is present. Lungs: There are small, nonspecific opacities in both lungs, which may represent atelectasis or inflammation. No parenchymal consolidation or volume loss is identified. Pleural spaces: There is no evidence of pleural effusion, focal pleural thickening, or pneumothorax. Skeletal structures: There are mild/moderate degenerative changes in the thoracic spine. There is a chronic appearing compression deformity of the L1 vertebral body. Upper abdomen: The images through the upper abdomen demonstrate multiple small calculi in the gallbladder. Impression: There is no evidence of subcutaneous emphysema in the neck or pneumomediastinum. There are no signs of extraluminal fluid collection in the neck or mediastinum. There is diffuse dilatation of the esophagus, as previously described. Report Dictated By: Mauricio Stark MD at 02/19/2018 10:06 PM ED Course/Re-evaluation Clinical Indication for ER IV: Hydration, IV Access ED Course After his initial evaluation as noted, an IV was started and he was given a liter of normal saline. Fhywoqnvp53.5mg IV and Benadryl 50mg IV given for headache. He had a normal head CT scan and a chest x-ray. Re-evaluation finds him sleeping, awakens, but unable to communicate any better than previously with me. He does seem to have less pain. It is felt that an infection from aspiration during the procedure earlier today was most likely the cause of his fever. It could also be a reaction to medications received earlier. Would also consider viral syndrome or influenza as a possible cause, so an influenza test is ordered. Cannot rule out meningitis as a cause, but no fever at this time. Called and discussed the case with the patient's guarding, Angela Chandler, who lives in [place]. Angela is the patient's younger sister. (phone number ). We discussed possible interventions. She feels that meningitis would be less likely than something related to the procedure done today, which I agree with. She would prefer not to have us do a lumbar puncture at this time. We are going to plan on admitting to the hospital which she is in agreement with. After my conversation with Angela, re-evaluation shows that the patient now has a fever of 100.9. Influenza pending. The patient has not given a urine sample yet. Called and discussed with Dr. Olivarez. Blood cultures and urine cultures will be obtained. CT scan of the neck and chest were done looking for any complication related to the EGD and showed esophageal inflammation and thickening, but no abscess, free air or indication of a tear. The patient will be admitted to [facility], antibiotics to be started on medical. I called and let Angela know the plan and results of further studies. Decision to Disposition Date: February 19, 2018 Decision to Disposition Time: 22:35 Depart Departure Latest Vital Signs Vital Signs Date Time Temp Pulse Resp B/P (MAP) Pulse Ox O2 Delivery O2 Flow Rate FiO2 02/19/18 22:30 74 19 97/51 (66) 90 02/19/18 20:02 100.9 02/19/18 18:18 Room Air Impression: Primary Impression: Fever Additional Impression: Headache Condition: Condition Unchanged Disposition: Admitted from ER Referrals: CYNDEE ROMAN (PCP) Problem Qualifiers Primary Impression: Fever Fever type: unspecified Qualified Codes: R50.9 - Fever, unspecified Additional Impression: Headache Headache type: unspecified Headache chronicity pattern: acute headache Intractability: not intractable Qualified Codes: R51 - Headache CARY GUNN MD February 19, 2018 18:29
[2018-02-19] MEDS ORDERED: PROMETHAZINE 25 MG/ML 1 ML AMP IVP ONE (18:40)
[2018-02-19] MEDS ORDERED: NS(*) 0.9% 1000 ML BAG 1,000 ML IV ONE (18:40)
[2018-02-19] MEDS ORDERED: diphenhydrAMINE 50 MG/ML VIAL IVP ONE (18:40)
[2018-02-19 19:04] LABS: PLATELET COUNT, AUTOMATED 245 K/uL (150-450)
--- NOTE | 2018-02-19 19:46 | RADIOLOGY IMAGING REPORT ---
[place] [facility] [place] NAME: Jayden Bhatti : 1965 MR: [id number] V: [id number] EXAM DATE: ORDERING PHYSICIAN: CARY GUNN TECHNOLOGIST: [place] [facility] [place]den B[place] : 1965 Visit/Account:[id number] Date of Sevice: 02/19/2018 CHEST SINGLE AP History: Headache, EGD today. Comparison 09/05/2016. FINDINGS: Mild pulmonary vascular congestion. No consolidation, effusion or pneumothorax. Heart size within nor mal limits. IMPRESSION: Mild pulmonary vascular congestion. Report Dictated By: Danilo Solano MD at 02/19/2018 7:41 PM Report E-Signed By: Danilo Solano MD at 02/19/2018 7:42 PM WSN:[id number]
--- NOTE | 2018-02-19 19:48 | RADIOLOGY IMAGING REPORT ---
FACILITY: [facility] [place] PATIENT NAME: Jayden Bhatti : 1965 MR: [id number] V: [id number] EXAM DATE: ORDERING PHYSICIAN: CARY GUNN TECHNOLOGIST: Location: [facility] [place] Patient: Jayden Bhatti : 1965 Visit/Account:[id number] Date of Sevice: 02/19/2018 EXAMINATION: Head CT without intravenous contrast History: Headache TECHNIQUE: Contiguous axial images were obtained from the skull base to the vertex without intraven ous contrast. One of the following dose optimization techniques was utilized in the performance of th is exam: Automated exposure control; adjustment of the mA and/or kV according to the patient's size; or use of an iterative reconstruction technique. Specific details can be referenced in the facility 's radiology CT exam operational policy. COMPARISON STUDIES: none FINDINGS: Visualized mastoid air cells / paranasal sinuses: negative Calvarium and scalp: negative White matter: negative Dural venous sinuses / arterial structures: negative Ventricles / sulci / fissures: Mildly prominent due to volume loss. Masses / hemorrhage / midline shift: negative Extra-axial spaces: negative IMPRESSION: No evidence of acute intracranial pathology. Report Dictated By: Danilo Solano MD at 02/19/2018 7:42 PM Report E-Signed By: Danilo Solano MD at 02/19/2018 7:44 PM WSN:[id number]
[2018-02-19] MEDS ORDERED: IOPAMIDOL 76% 75 ML INFUS BTL 75 ML ONE (20:27)
--- NOTE | 2018-02-19 22:31 | RADIOLOGY IMAGING REPORT ---
FACILITY: [facility] PATIENT NAME: Jayden Bhatti : 1965 MR: [id number] V: [id number] EXAM DATE: ORDERING PHYSICIAN: CARY GUNN TECHNOLOGIST: [place] [facility] [place]den Bhat[place] : 1965 Visit/Account:[id number] Date of Sevice: 02/19/2018 CT of the neck and chest with contrast: Indication: Fever. The patient had upper endoscopy earlier today. Technique: Helical CT was performed through the neck and chest following IV contrast enhancement with 75 cc of Isovue-370. Multiplanar reconstructions are reviewed. Image quality is limited, due to elise ent motion artifact. One of the following dose optimization techniques was utilized in the performanc e of this exam: Automated exposure control; adjustment of the mA and/or kV according to the patient's size; or use of an iterative reconstruction technique. Specific details can be referenced in the [facility]'s radiology CT exam operational policy. Comparison: None. Findings: Neck: There is no evidence of soft tissue mass, fluid collection, inflammatory process, or air in the soft tissues of the neck. No acute skeletal deformity is identified. There are diffuse degenerative changes in the cervical spine. Mediastinum: There is diffuse dilatation of the esophagus, similar to a fluoroscopy study on 8. There is no evidence of pneumomediastinum or mediastinal fluid collection. The vascular structures appear unremarkable. The heart appears enlarged. A small pericardial effusion is present. Lungs: There are small, nonspecific opacities in both lungs, which may represent atelectasis or infla mmation. No parenchymal consolidation or volume loss is identified. Pleural spaces: There is no evidence of pleural effusion, focal pleural thickening, or pneumothorax. Skeletal structures: There are mild/moderate degenerative changes in the thoracic spine. There is a c hronic appearing compression deformity of the L1 vertebral body. Upper abdomen: The images through the upper abdomen demonstrate multiple small calculi in the gallbla dder. Impression: There is no evidence of subcutaneous emphysema in the neck or pneumomediastinum. There ar e no signs of extraluminal fluid collection in the neck or mediastinum. There is diffuse dilatation o f the esophagus, as previously described. Report Dictated By: Mauricio Stark MD at 02/19/2018 10:06 PM Report E-Signed By: Mauricio Stark MD at 02/19/2018 10:26 PM WSN:[id number]
--- NOTE | 2018-02-19 22:31 | RADIOLOGY IMAGING REPORT ---
FACILITY: [facility] - [place] PATIENT NAME: Jayden Bhatti : 1965 MR: [id number] V: [id number] EXAM DATE: ORDERING PHYSICIAN: CARY GUNN TECHNOLOGIST: Location: [facility] [place] Patient: Jayden Bhatti : 1965 Visit/Account:[id number] Date of Sevice: 02/19/2018 CT of the neck and chest with contrast: Indication: Fever. The patient had upper endoscopy earlier today. Technique: Helical CT was performed through the neck and chest following IV contrast enhancement with 75 cc of Isovue-370. Multiplanar reconstructions are reviewed. Image quality is limited, due to elise ent motion artifact. One of the following dose optimization techniques was utilized in the performanc e of this exam: Automated exposure control; adjustment of the mA and/or kV according to the patient's size; or use of an iterative reconstruction technique. Specific details can be referenced in the [facility]'s radiology CT exam operational policy. Comparison: None. Findings: Neck: There is no evidence of soft tissue mass, fluid collection, inflammatory process, or air in the soft tissues of the neck. No acute skeletal deformity is identified. There are diffuse degenerative changes in the cervical spine. Mediastinum: There is diffuse dilatation of the esophagus, similar to a fluoroscopy study on 8. There is no evidence of pneumomediastinum or mediastinal fluid collection. The vascular structures appear unremarkable. The heart appears enlarged. A small pericardial effusion is present. Lungs: There are small, nonspecific opacities in both lungs, which may represent atelectasis or infla mmation. No parenchymal consolidation or volume loss is identified. Pleural spaces: There is no evidence of pleural effusion, focal pleural thickening, or pneumothorax. Skeletal structures: There are mild/moderate degenerative changes in the thoracic spine. There is a c hronic appearing compression deformity of the L1 vertebral body. Upper abdomen: The images through the upper abdomen demonstrate multiple small calculi in the gallbla dder. Impression: There is no evidence of subcutaneous emphysema in the neck or pneumomediastinum. There ar e no signs of extraluminal fluid collection in the neck or mediastinum. There is diffuse dilatation o f the esophagus, as previously described. Report Dictated By: Mauricio Stark MD at 02/19/2018 10:06 PM Report E-Signed By: Mauricio Stark MD at 02/19/2018 10:26 PM WSN:[id number]
[2018-02-19] MEDS ORDERED: FLUSH 10 ML SYR IVP PRN (23:15)
[2018-02-19] MEDS ORDERED: ACETAMINOPHEN(*)1000 MG/100 ML 100 ML IVPB PRN (23:20)
[2018-02-19 23:21] VITALS: BP 95/63
--- NOTE | 2018-02-19 23:39 | History & Physical ---
History of Present Illness Chief Complaint Headache and feel cold History of Present Illness 53yo male with PMHx significant for Down's Syndrome, dysphagia with EGD dilation earlier today. He has been having significant dysphagia with coughing/ choking with virtually anything taken by mouth. He underwent EGD with esophageal dilation earlier today. After the procedure he was reported to be doing well. A few hours later, however, he was complaining of feeling cold ( especially his hands) and had a headache. His caretakers report that he rarely complains of anything at all. He was brought to the ER for evaluation. He was found to have low grade fever and elevated WBC count. His CXR did not show a definite infiltrate. His CT scan of neck/chest did not show any evidence of laceration/rupture, but there were a few nonspecific opacities. Dr. Solis in the ER talked with his POA regarding further work-up and he did not want to pursue lumbar puncture at this time. He was recommended for admission. History Problems: (1) Heartburn Status: Chronic (2) DIANN (obstructive sleep apnea) Status: Chronic (3) Down syndrome Status: Chronic (4) Psoriasis Status: Chronic (5) Hypothyroidism Status: Chronic (6) Pneumonia due to organism Status: Resolved (7) Reactive cervical lymphadenopathy Status: Chronic (8) Incarcerated epigastric hernia Status: Resolved Home Meds Active Scripts Hydrocodone Bit/Acetaminophen (NORCO 5-325 TABLET) 1 Each Tablet, 1 EACH PO Q4H Y for PAIN, #30 TAB Prov:ROWAN DAN MD 12/16/17 Pantoprazole Sodium (PANTOPRAZOLE SODIUM) 40 Mg Tablet.dr, 40 MG PO QDAY, #60 TAB.SR 3 Refills Prov:ROWAN DAN MD 12/16/17 Reported Medications Albuterol Sulfate (VENTOLIN HFA) 18 Gm Inh, 1-2 PUFF INH PRN Y for SHORTNESS OF BREATH, INH 12/10/17 Cholecalciferol (Vitamin D3) (VITAMIN D3) 1,000 Unit Tablet, 2000 UNIT PO DAILY , TAB 05/02/16 Petrolatum,White (VASELINE) 18 Ml Jelly.ml., 18 ML TP BID 05/02/16 Sodium Chloride (SALINE NASAL SPRAY) 30 Ml [place], 30 ML NS TID, SPRAY 05/02/16 Sodium Chloride (SALINE NASAL SPRAY) 30 Ml [place], 30 ML NS, SPRAY 05/02/16 Guaifenesin/D-Methorphan Hb/Pe (ROBAFEN CF LIQUID) 118 Ml Liquid, 5 ML PO PRN Y for CONGESTION 05/02/16 Carboxymethyl/Gly/Poly80/Pf (REFRESH OPTIVE ADVANCED DROPS) 1 Each Droperette, 1 EACH OP DIRECTED 05/02/16 [place] Oil (OLIVE OIL) 480 Ml Oil, 480 ML MC DAILY 05/02/16 Lytes/Yerba Yasemin (MOUTHKOTE SOLUTION) 60 Ml [place], 60 ML MM TID, SPRAY 05/02/16 Ibuprofen (IBUPROFEN) 100 Mg Tab.chew, 2 TAB PO Q6H Y for PAIN, TAB.CHEW 05/02/16 Hydrocortisone/Aloe Vera (HYDROCORTISONE 1% OINTMENT) 28 Gm Oint...g., 28 GM TP 05/02/16 Multivitamin (GUMMI BEAR MULTIVITAMIN) 1 Each Tab.chew, 1 EACH PO DAILY, TAB.CHEW 05/02/16 [place]-3 Fatty Acids (FISH OIL) 300 Mg Capsule, 300 MG PO DAILY, CAPSULE 05/02/16 Methylcellulose (With Sugar) (CITRUCEL POWDER) 454 Gm Powder, 454 GM PO DAILY 05/02/16 Cetyl Alc/Stearyl Alc/Pg/Sls (CETAPHIL CREAM) 454 Gm Cream..g., 454 GM TP 05/02/16 Menthol (BIOFREEZE) 118 Ml Gel..ml. 05/02/16 Bacitracin (BACITRACIN ZINC) 0.9 Gm Oint, 0.9 GM TP PRN Y for RASH 05/02/16 Loperamide Hcl (ANTI-DIARRHEAL) 2 Mg Tablet, 2 TAB PO PRN Y for DIARRHEA 05/02/16 Calcium Carbonate/Mag Hydrox (ANTACID CHEWABLE TABLET) 1 Each Tab.chew, 2 EACH PO PRN Y for HEARTBURN, TAB.CHEW 05/02/16 Acetaminophen (TYLENOL EXTRA STRENGTH) 500 Mg Tablet, 1000 MG PO PRN Y for PAIN , TAB 05/02/16 Guaifenesin (MUCINEX) 600 Mg Tablet.er, 1 TAB PO PRN 04/11/16 Levothyroxine Sodium (LEVOTHYROXINE SODIUM) 88 Mcg Tablet, 88 MCG PO QDAY 03/26/16 Naproxen Sodium (NAPROXEN SODIUM) 220 Mg Capsule, 220 MG PO TID, CAPSULE 07/20/13 Allopurinol (ZYLOPRIM 300 MG TAB (OR EQUIV)) 300 Mg Tablet, 300 MG PO QDAY 07/20/13 Adalimumab (HUMIRA) 40 Mg/0.8 Ml Pen.ij.kit, 40 MG SQ every other week 07/20/13 Alprazolam (ALPRAZOLAM) 0.5 Mg Tab.rapdis, 0.5 MG PO PRN 07/20/13 Discontinued Reported Medications Amoxicillin (AMOXICILLIN) 500 Mg Capsule, 4 CAP PO DIRECTED, #15 CAPSULE 05/02/16 Allergies: Coded Allergies: No Known Drug Allergies (Unverified , 12/16/17) Other Social/Family Hx He currently lives at an [facility] home. Hx Smoking: No Smoking Status: Never Smoker Caffeine/Cups Per Day: OCC Hx Alcohol Use: No Social Drug Use: Never Review of Systems Other Unable to obtain at present Exam Vital Signs Vital Signs Date Time Temp Pulse Resp B/P (MAP) Pulse Ox O2 Delivery O2 Flow Rate FiO2 02/19/18 22:52 98.7 74 20 93/58 (70) 89 Room Air General Appearance: Alert, Awake, Other (he prefers to not be examined, but did acquiesce) Neuro: Other (he moves all four extremities normally and purposefully) Eyes: Other (he will open his eyes, but not for exam) ENT: Oropharynx Clear Neck: No Masses Cardiovascular: Regular Rate and Rhythm, No JVD Respiratory: Other (few rales at left base/scattered rhonchi) Chest: No Tenderness GI: Abd Soft and Non-Tender : No CVA Tenderness Extremities: Warm, Perfused Integumentary: Other (diffuse placques over both lower extremities/some chronic venous stasis changes both lower extremities below the knees) Medical Decision Making Data Points Result Diagram: 02/19/18 0000 02/19/18 0000 Item Value Date Time Influenza Virus Type B (PCR) Negative 02/19/181954 Influenza Virus Type A (PCR) Negative 02/19/181954 Urine Mucus None /HPF 02/19/182033 Urine Bacteria Negative /HPF 02/19/182033 Urine Squamous Epithelial Cells None /LPF 02/19/182033 Urine WBC <1 /HPF 02/19/182033 Urine RBC None /HPF 02/19/182033 Urine Leukocyte Esterase Negative 02/19/182033 Urine Urobilinogen Negative mg/dL 02/19/182033 Urine Bilirubin Negative 02/19/182033 Urine Nitrite Negative 02/19/182033 Urine Blood Negative 02/19/182033 Urine Ketones Negative mg/dL 02/19/182033 Urine Glucose (UA) Negative mg/dL 02/19/182033 Urine Protein Negative mg/dL 02/19/182033 Urine Specific [place] 1.012 02/19/182033 Urine pH 8.0 pH 02/19/182033 Urine Clarity Clear 02/19/182033 Urine Color Yellow 02/19/182033 Albumin 3.9 g/dl 02/19/18 0000 Total Protein 7.9 gm/dl 02/19/18 0000 C-Reactive Protein 2.5 mg/dl H 02/19/18 0000 Alkaline Phosphatase 106 U/L 02/19/18 0000 Alanine Aminotransferase (ALT/SGPT) 23 U/L 02/19/18 0000 Aspartate Amino Transf (AST/SGOT) 23 U/L 02/19/18 0000 Total Bilirubin 0.8 mg/dl 02/19/18 0000 Calcium Level 9.8 mg/dl 02/19/18 0000 EKG / Imaging Imaging PATIENT NAME: Jayden Bhatti : 1965 MR: [id number] V: [id number] EXAM DATE: ORDERING PHYSICIAN: CARY SOLIS TECHNOLOGIST: Location: Patient: Jayden Bhatti : 1965 Visit/Account:[id number] Date of Sevice: 02/19/2018 CT of the neck and chest with contrast: Indication: Fever. The patient had upper endoscopy earlier today. Technique: Helical CT was performed through the neck and chest following IV contrast enhancement with 75 cc of Isovue-370. Multiplanar reconstructions are reviewed. Image quality is limited, due to patient motion artifact. One of the following dose optimization techniques was utilized in the performance of this exam: Automated exposure control; adjustment of the mA and/or kV according to the patient's size; or use of an iterative reconstruction technique. Specific details can be referenced in the facility's radiology CT exam operational policy. Comparison: None. Findings: Neck: There is no evidence of soft tissue mass, fluid collection, inflammatory process, or air in the soft tissues of the neck. No acute skeletal deformity is identified. There are diffuse degenerative changes in the cervical spine. Mediastinum: There is diffuse dilatation of the esophagus, similar to a fluoroscopy study on 02/03/2018. There is no evidence of pneumomediastinum or mediastinal fluid collection. The vascular structures appear unremarkable. The heart appears enlarged. A small pericardial effusion is present. Lungs: There are small, nonspecific opacities in both lungs, which may represent atelectasis or inflammation. No parenchymal consolidation or volume loss is identified. Pleural spaces: There is no evidence of pleural effusion, focal pleural thickening, or pneumothorax. Skeletal structures: There are mild/moderate degenerative changes in the thoracic spine. There is a chronic appearing compression deformity of the L1 vertebral body. Upper abdomen: The images through the upper abdomen demonstrate multiple small calculi in the gallbladder. Impression: There is no evidence of subcutaneous emphysema in the neck or pneumomediastinum. There are no signs of extraluminal fluid collection in the neck or mediastinum. There is diffuse dilatation of the esophagus, as previously described. Report Dictated By: Mauricio Stark MD at 02/19/2018 10:06 PM Report E-Signed By: Mauricio Stark MD at 02/19/2018 10:26 PM WSN:[id number] PATIENT NAME: Jayden Bhatti : 1965 MR: [id number] V: [id number] EXAM DATE: ORDERING PHYSICIAN: CARY SOLIS TECHNOLOGIST: Location: Patient: Jayden Bhatti : 1965 Visit/Account:[id number] Date of Sevice: 02/19/2018 CHEST SINGLE AP History: Headache, EGD today. Comparison 09/05/2016. FINDINGS: Mild pulmonary vascular congestion. No consolidation, effusion or pneumothorax. Heart size within normal limits. IMPRESSION: Mild pulmonary vascular congestion. Report Dictated By: Danilo Solano MD at 02/19/2018 7:41 PM Report E-Signed By: Danilo Solano MD at 02/19/2018 7:42 PM WSN:[id number] PATIENT NAME: Jayden Bhatti : 1965 MR: [id number] V: [id number] EXAM DATE: ORDERING PHYSICIAN: CARY SOLIS TECHNOLOGIST: Location: Patient: Jayden Bhatti : 1965 Visit/Account:[id number] Date of Sevice: 02/19/2018 EXAMINATION: Head CT without intravenous contrast History: Headache TECHNIQUE: Contiguous axial images were obtained from the skull base to the vertex without intravenous contrast. One of the following dose optimization techniques was utilized in the performance of this exam: Automated exposure control; adjustment of the mA and/or kV according to the patient's size; or use of an iterative reconstruction technique. Specific details can be referenced in the facility's radiology CT exam operational policy. COMPARISON STUDIES: none FINDINGS: Visualized mastoid air cells / paranasal sinuses: negative Calvarium and scalp: negative White matter: negative Dural venous sinuses / arterial structures: negative Ventricles / sulci / fissures: Mildly prominent due to volume loss. Masses / hemorrhage / midline shift: negative Extra-axial spaces: negative IMPRESSION: No evidence of acute intracranial pathology. Report Dictated By: Danilo Solano MD at 02/19/2018 7:42 PM Report E-Signed By: Danilo Solano MD at 02/19/2018 7:44 PM WSN:[id number] Assessment and Plan Problems: (1) Aspiration pneumonia Status: Acute Assessment & Plan: Based on his history of findings, would suspect he probably has an aspiration pneumonia. Will admit for IV antibiotics, oxygen supplementation, and respiratory treatments as needed. This may be a difficult situation if he is not able to adequately swallow following his EGD/dilation. (2) Hypothyroidism Status: Chronic Assessment & Plan: Will place on IV L-thyroxine at half of his usual oral dose. (3) DIANN (obstructive sleep apnea) Status: Chronic Assessment & Plan: Apparently, he is supposed to use CPAP, but has refused to do so. (4) Heartburn Status: Chronic Assessment & Plan: Will continue PPI therapy with IV Protonix. (5) Down syndrome Status: Chronic Copies to: [facility] Venous Thromboembolism Antithrombotics Is Pt On Any Antithrombotics?: Yes Exam Sepsis Risk: No Definite Risk ZAIN MORAN MD February 19, 2018 23:39
[2018-02-19] MEDS ORDERED: ALBUTEROL 2.5 MG/3 ML NEB NEB PRN (23:40)
[2018-02-20] MEDS: NS(*) 0.9% 1000 ML BAG 1,000 ML IV PRN ×2 (00:20→15:40)
[2018-02-20] MEDS: IMIPENEM/CILASTA(*) 500MG VIAL 500 MG in NS(*) 0.9% 100 ML BAG 100 ML IVPB SCH ×5 (00:39→23:33)
[2018-02-20 04:02] VITALS: BP 88/55
[2018-02-20 04:43] VITALS: BP 82/55
[2018-02-20] MEDS ORDERED: LEVOTHYROXINE SOD 100 MCG VIAL IVP SCH (06:00)
[2018-02-20 06:12] VITALS: BP 89/54
[2018-02-20 06:43] LABS: PLATELET COUNT, AUTOMATED 209 K/uL (150-450)
[2018-02-20 09:12] VITALS: Ht 154.9 cm; Wt 73.1 kg
[2018-02-20] MEDS: ENOXAPARIN 40 MG/0.4ML SYR SC SCH (09:48)
[2018-02-20] MEDS: PANTOPRAZOLE SOD 40 MG IV VIAL IVP SCH (09:48)
[2018-02-20 11:59] VITALS: BP 92/60
--- NOTE | 2018-02-20 13:12 | SLP BEDSIDE SWALLOW EVALUATION ---
[*]DYSPHAGIA ASSESSMENT Physician: Paulette Olivarez MD Clinician: Sandrine Coronel MS, CCC-SUPERVISOR [employer] Type of Assessment: Dysphagia Evaluation Patient: Jayden Bhatti : 1965, 53 yo Evaluation Date: 02/20/2018 BACKGROUND The patient is a 53yo male with PMHx significant for Down's Syndrome, dysphagia with EGD balloon dilation to 20mm on 02/19. During EGD, solid food material was discovered in the pt's esophagus despite reported adherence to NPO recommendations prior to procedure. Caregivers report history of significant dysphagia, including intermittent gagging, emesis, and coughing/choking with "virtually anything taken by mouth." After participating in dilation procedure, pt was reported to be doing well. A few hours later, however, pt w/ complaints of of feeling cold (especially his hands) and having a headache. Pt was brought to the ER, found to have low grade fever and elevated WBC count. His CXR did not show a definite infiltrate. An ST evaluation was ordered 2/2 significant hx of dysphagia and concerns re: coughing w/ thin liquids since hospital admission. Primary Medical Diagnosis: Pneumonia Pain Scale (0-10): Patient w/ no reports of pain. LOC / Participation: alert, somewhat resistant but ultimately cooperative w/ all evaluation procedures. Pt w/ increased motivation when reminded of overall goal to discharge home. Follows instructions: yes Orientation: A&O x4. Functional Communication Deficits impact swallow function/safety, or response to therapy: No. Patient demonstrates cog comm deficits associated w/ developmental delay. This did not appear to impact ability to comprehend and execute trained safe swallow strategies. Pt was highly motivated to execute strategies 2/2 strong desire to d/c to home environment. ASSESSMENT Sialorrhea: No Xerostomia: Yes Supplemental Oxygen Use: No. O2 sats maintained >95% throughout eval procedures. COPD Dx: No Pain with Swallow: Denies. Reports discomfort. Caregiver and sister report frequent coughing, emesis, and gagging w/ PO intake. Oropharyngeal Structure and Function: Oromotor exam was mostly unremarkable apart from mildly decreased coordination of oral musculature. Pt w/ adequate strength and ROM, full dentition, and no asymmetries. Pharyngeally, pt w/ strong voluntary cough and adequate hyolaryngeal elevation to palpation. Administered PO trials of thin liquids via self-serve cup sip and straw. Pt w/ tendency to consume large sips in rapid succession. When provided w/ education re: importance of consuming small sips, one at a time, pt implemented safe swallow strategy w/ out difficulty. Additionally administered PO trials of pureed solids, mech soft solids, and regular solids. Pt was diligent in ensuring appropriate bolus sizes were consumed throughout subsequent solid trials. Oral phase was characterized by vertical/munch vs effective rotary chew pattern w/ decreased bolus cohesion and mild post-swallow oral residue across PO trials. When verbally prompted, pt effectively cleared material w/ lingual sweep/re-swallow and/or liquid wash. Pharyngeal swallow somewhat delayed (1-2 sec), and pt produced consistent, audible swallow w/ immediate belching. However , all PO trials were successfully tolerated w/ out overt s/sx of aspiration. Despite tolerance of 100% of PO trials, recommend completion of MBSS. Caregivers and staff members report that performance during eval procedures does not appear consistent w/ typical performance. Pt w/ hx of known esophageal dysphagia, and suspected aspiration pneumonia. MBSS is recommended to analyze pharyngeal structure/function, obtain objective information, and to make appropriate recommendations for compensatory swallow strategies, possible exercises, referrals, and dietary modifications if necessary. Unable to directly observe pt w/ medication administration. However, suspect that decreased coordination of oral musculature paired w/ compromised respiratory status may result in difficulty managing whole medications paired w / non-viscous, thin liquids. Hx of esophageal dysphagia (and potentially decreased UES opening) further contributes to concern for pt ability to swallow whole meds w/ thin liquids. Immersing whole meds in puree (or continuing to provide via IV if appropriate) is recommended at this time to improve efficient clearance through esophagus. ST ASSESSMENT SUMMARY Aspiration Risk: Aspiration Risk: Mild to moderately increased compromised respiratory status, hx of significant esophageal dysphagia. Speech Therapy Need ST will continue monitor diet tolerance and provide patient/caregiver education re: safe swallow strategies to minimize risk for aspiration 2/2 mild oral dysphagia, significant hx of esophageal dysphagia. RECOMMENDATIONS 1. Diet: Regular, thin liquids. 2. Medications: Cut large pills in half. Otherwise, whole, immersed in puree 3. Compensatory Techniques: regular oral hygiene, upright positioning during PO intake, upright positioning at leas 45-60 min after PO intake, cues to consume small bites/sips, one at a time, ensure complete mastication of all material, check for pocketing/residue, alternate bites and sips. 4. Supervision with meals/snacks: Provide frequent reminders for swallow safety and closely monitor tolerance of diet upgrade. 5. [facility] PLAN OF CARE Goals 1. Patient and caregivers will receive education regarding safe swallow strategies/precautions, and will provide verbal/visual demonstration of comprehension during 100% of opportunities. 2. Patient safely tolerate regular diet, thin liquids, and whole medications with independent implementation of safe swallow strategies and no overt s/sx of aspiration. 2. Patient will participate in Modified Barium Swallow Study Rehabilitation Prognosis: Good. Strong community supports, strong family support. Thank you for this referral. Sandrine Coronel M.S., [facility]-SUPERVISOR [employer] Speech Therapist Physician Signature Date MTDD
--- NOTE | 2018-02-20 13:39 | Hospitalist Progress Note ---
Subjective Progress Notes Subjective The patient denies new complaints. Wants to go home. Physical Exam Vital Signs Date Time Temp Pulse Resp B/P (MAP) Pulse Ox O2 Delivery O2 Flow Rate FiO2 02/20/18 11:59 97.9 69 20 92/60 (71) 93 Room Air 02/20/18 06:12 1.0 Intake and Output 02/21/18 07:00 Intake Total 720 ml Balance 720 ml Intake Oral 720 ml # Voids 1 General Appearance: Alert, Awake, No Acute Distress Eyes: PERRLA Cardiovascular: Regular Rate and Rhythm Respiratory: Other (Faint scatterd rales bilaterally.) GI: Soft and Non-Tender Extremities: Warm, Perfused Integumentary: Scaly / Dry Skin Result Diagram: 02/20/1835 02/20/18634 Assessment and Plan Problems: (1) Aspiration pneumonia Status: Acute Assessment & Plan: Based on his history and findings, would suspect he probably has an aspiration pneumonia. Looking back, he has been on outpatient antibiotics multiple times in the past few months. Will admit for IV antibiotics , oxygen supplementation, and respiratory treatments as needed. Will have ST evaluate his swallowing. (2) Hypothyroidism Status: Chronic Assessment & Plan: Will place on IV L-thyroxine at half of his usual oral dose. (3) DIANN (obstructive sleep apnea) Status: Chronic Assessment & Plan: Apparently, he is supposed to use CPAP, but has refused to do so. (4) Heartburn Status: Chronic Assessment & Plan: Will continue PPI therapy with IV Protonix. (5) Down syndrome Status: Chronic Time Spent on Plan of Care: < 30 min Exam Sepsis Risk: No Definite Risk KARLY MORAN MD February 20, 2018 13:39
[2018-02-20 15:26] VITALS: BP 92/53
[2018-02-20] MEDS ORDERED: SODI15DR18 OU (17:19)
[2018-02-20] MEDS ORDERED: IBUP-56 PO (17:19)
[2018-02-20] MEDS ORDERED: CIT500PT PO (17:19)
[2018-02-20] MEDS ORDERED: TRIA60LO10 TP (17:20)
[2018-02-20] MEDS ORDERED: PETR18JE TP (17:20)
[2018-02-20] MEDS ORDERED: CALC625T65 PO (17:20)
[2018-02-20] MEDS ORDERED: AMOX-362 PO (17:20)
[2018-02-20] MEDS ORDERED: SODI3.5O14 OU (17:20)
[2018-02-20] MEDS ORDERED: CARB1DRO2 OP (17:20)
[2018-02-20] MEDS ORDERED: PANT40TA65 PO (17:20)
[2018-02-20 19:09] VITALS: BP 105/55
[2018-02-21 02:51] VITALS: BP 85/53
[2018-02-21] MEDS: IMIPENEM/CILASTA(*) 500MG VIAL 500 MG in NS(*) 0.9% 100 ML BAG 100 ML IVPB SCH (05:34)
[2018-02-21 05:40] LABS: PLATELET COUNT, AUTOMATED 212 K/uL (150-450)
[2018-02-21 06:57] VITALS: BP 85/66
[2018-02-21] MEDS: NS(*) 0.9% 1000 ML BAG 1,000 ML IV PRN (08:08)
[2018-02-21] MEDS: PANTOPRAZOLE SOD 40 MG IV VIAL IVP SCH (09:00)
[2018-02-21] MEDS ORDERED: LEVOTHYROXINE SOD 100 MCG VIAL IVP SCH (09:00)
[2018-02-21] MEDS: ENOXAPARIN 40 MG/0.4ML SYR SC SCH (09:00)
[2018-02-21] MEDS ORDERED: AMOX600S32 PO (09:15)
--- NOTE | 2018-02-21 09:29 | Hospitalist Depart ---
Discharge Summary Reason for Hosp/Final Diag: (1) Aspiration pneumonia Status: Acute Hospital Course & Plan: Based on his history and findings, we suspect he probably had an aspiration pneumonia. He does have the history of esophageal stricture with EGD and dilation on 02/19/18. He was admitted for IV antibiotics, oxygen supplementation, and respiratory treatments. Speech/Swallowing therapy did evaluate his swallowing. They have recommended modified barium swallow and continued therapy as an outpatient. During his stay he was doing fairly well with their recommendations. We will transition him to oral antibiotics to complete his course of therapy. He will follow up closely with Mindy CORDERO, his primary care provider. (2) Hypothyroidism Status: Chronic Hospital Course & Plan: He will continue his usual L-thyroxine. (3) DIANN (obstructive sleep apnea) Status: Chronic Hospital Course & Plan: Apparently, he is supposed to use CPAP, but has refused to do so. (4) Heartburn Status: Chronic Hospital Course & Plan: Will continue PPI therapy. (5) Down syndrome Status: Chronic Departure Weight (Pounds): 161 Weight (Ounces): 2.0 Result Diagram: 02/21/1852702/21/18527 Item Value Date Time White Blood Count 13.1 k/uL H 02/19/18 0000 Hemoglobin 15.5 g/dL 02/19/18 0000 Hematocrit 45.7 % 02/19/18 0000 Platelet Count 245 K/uL 02/19/18 0000 Sodium Level 141 mmol/L 02/19/18 0000 Potassium Level 3.5 mmol/L 02/19/18 0000 Chloride Level 100 mmol/L 02/19/18 0000 Carbon Dioxide Level 29 mmol/L 02/19/18 0000 Blood Urea Nitrogen 16 mg/dl 02/19/18 0000 Creatinine 0.90 mg/dl 02/19/18 0000 Glomerular Filtration Rate Calc > 60.0 02/19/18 0000 Random Glucose 99 mg/dl 02/19/18 0000 Calcium Level 9.8 mg/dl 02/19/18 0000 Total Bilirubin 0.8 mg/dl 02/19/18 0000 Aspartate Amino Transf (AST/SGOT) 23 U/L 02/19/18 0000 Alanine Aminotransferase (ALT/SGPT) 23 U/L 02/19/18 0000 Alkaline Phosphatase 106 U/L 02/19/18 0000 C-Reactive Protein 2.5 mg/dl H 02/19/18 0000 Total Protein 7.9 gm/dl 02/19/18 0000 Albumin 3.9 g/dl 02/19/18 Urine Color Yellow 02/19/182033 Urine Clarity Clear 02/19/182033 Urine pH 8.0 pH 02/19/182033 Urine Specific [place] 1.012 02/19/182033 Urine Protein Negative mg/dL 02/19/182033 Urine Glucose (UA) Negative mg/dL 02/19/182033 Urine Ketones Negative mg/dL 02/19/182033 Urine Blood Negative 02/19/182033 Urine Nitrite Negative 02/19/182033 Urine Bilirubin Negative 02/19/182033 Urine Urobilinogen Negative mg/dL 02/19/182033 Urine Leukocyte Esterase Negative 02/19/182033 Urine RBC None /HPF 02/19/182033 Urine WBC <1 /HPF 02/19/182033 Urine Squamous Epithelial Cells None /LPF 02/19/182033 Urine Bacteria Negative /HPF 02/19/182033 Urine Mucus None /HPF 02/19/182033 Influenza Virus Type A (PCR) Negative 02/19/181954 Influenza Virus Type B (PCR) Negative 02/19/181954 [facility] *LIVE* [address] [place] [address] ESTIVEN EDDY M.D., DIRECTOR OF LABORATORY SERVICES RAFAEL ROSEN M.D., PATHOLOGIST RUN DATE: 02/20/18 Specimen Inquiry Report PAGE 1 RUN TIME: 1000 PATIENT: JAYDEN DIXON ACCT: [id number] LOC: MED U : [id number] AGE/SX: 53/M ROOM: [facility]ly [facility], [facility] REG : 02/19/[address]: ZAIN MORAN MD : 1965 BED: 273 DIS : STATUS: ADM IN TLOC: SPEC #: [id number] JOSUE: 02/19/18 STATUS: RES REQ #: [id number] RECD: 02/19/[address]: CARY GUNN MD SOURCE: BLOOD ENTR: 02/19/[address]: CULT BLOOD Procedure Result Verified BLOOD CULTURE Preliminary 02/20/18-1000 NO GROWTH AFTER 1 DAY, REINCUBATED [facility] *LIVE* [address] [place] [address] ESTIVEN EDDY M.D., DIRECTOR OF LABORATORY SERVICES RAFAEL ROSEN M.D., PATHOLOGIST RUN DATE: 02/21/18 Specimen Inquiry Report PAGE 1 RUN TIME: 900 PATIENT: JAYDEN DIXON ACCT: [id number] LOC: [facility] U : [id number] AGE/SX: 53/M ROOM: [facility] REG : 02/19/[address]: ZAIN MORAN MD : 1965 BED: 273 DIS : STATUS: ADM IN TLOC: SPEC #: [id number] JOSUE: 02/19/18 STATUS: RES REQ #: [id number] RECD: 02/19/[address]: CARY GUNN MD SOURCE: KRYSTYNA ENTR: 02/19/[address]: MINDY PAGANP [facility]: ORDERED: CULT URINE Procedure Result Verified URINE CULTURE Preliminary 02/21/18-900 NO GROWTH AFTER 1 DAY, REINCUBATED [facility] *LIVE* [address] [place] [address] ESTIVEN EDDY M.D., DIRECTOR OF LABORATORY SERVICES RAFAEL ROSEN M.D., PATHOLOGIST RUN DATE: 02/20/18 Specimen Inquiry Report PAGE 1 RUN TIME: 1000 PATIENT: JAYDEN DIXON Anil ACCT: [id number] LOC: MED U : [id number] AGE/SX: 53/M ROOM: 2273 REG : 02/19/[address]: ZAIN MORAN MD : 1965 BED: 273 DIS : STATUS: ADM IN TLOC: SPEC #: [id number] JOSUE: 02/19/18 STATUS: RES REQ #: [id number] RECD: 02/19/[address]: CARY GUNN MD SOURCE: BLOOD ENTR: 02/19/18-[address] C[facility]LOOD Procedure Result Verified BLOOD CULTURE Preliminary 02/20/18-1000 NO GROWTH AFTER 1 DAY, REINCUBATED Imaging PATIENT NAME: Jayden Dixon : 1965 MR: [id number] V: [id number] EXAM DATE: ORDERING PHYSICIAN: CARY GUNN TECHNOLOGIST: Location: [facility] [place] Patient: Jayden Dixon : 1965 Visit/Account:[id number] Date of Sevice: 02/19/2018 CT of the neck and chest with contrast: Indication: Fever. The patient had upper endoscopy earlier today. Technique: Helical CT was performed through the neck and chest following IV contrast enhancement with 75 cc of Isovue-370. Multiplanar reconstructions are reviewed. Image quality is limited, due to patient motion artifact. One of the following dose optimization techniques was utilized in the performance of this exam: Automated exposure control; adjustment of the mA and/or kV according to the patient's size; or use of an iterative reconstruction technique. Specific details can be referenced in the facility's radiology CT exam operational policy. Comparison: None. Findings: Neck: There is no evidence of soft tissue mass, fluid collection, inflammatory process, or air in the soft tissues of the neck. No acute skeletal deformity is identified. There are diffuse degenerative changes in the cervical spine. Mediastinum: There is diffuse dilatation of the esophagus, similar to a fluoroscopy study on 02/03/2018. There is no evidence of pneumomediastinum or mediastinal fluid collection. The vascular structures appear unremarkable. The heart appears enlarged. A small pericardial effusion is present. Lungs: There are small, nonspecific opacities in both lungs, which may represent atelectasis or inflammation. No parenchymal consolidation or volume loss is identified. Pleural spaces: There is no evidence of pleural effusion, focal pleural thickening, or pneumothorax. Skeletal structures: There are mild/moderate degenerative changes in the thoracic spine. There is a chronic appearing compression deformity of the L1 vertebral body. Upper abdomen: The images through the upper abdomen demonstrate multiple small calculi in the gallbladder. Impression: There is no evidence of subcutaneous emphysema in the neck or pneumomediastinum. There are no signs of extraluminal fluid collection in the neck or mediastinum. There is diffuse dilatation of the esophagus, as previously described. Report Dictated By: Mauricio Stark MD at 02/19/2018 10:06 PM Report E-Signed By: Mauricio Stark MD at 02/19/2018 10:26 PM WSN:[id number] PATIENT NAME: Jayden Dixon : 1965 MR: [id number] V: [id number] EXAM DATE: ORDERING PHYSICIAN: CARY GUNN TECHNOLOGIST: Location: [facility] [place] Patient: Jayden Dixon : 1965 Visit/Account:[id number] Date of Sevice: 02/19/2018 CHEST SINGLE AP History: Headache, EGD today. Comparison 09/05/2016. FINDINGS: Mild pulmonary vascular congestion. No consolidation, effusion or pneumothorax. Heart size within normal limits. IMPRESSION: Mild pulmonary vascular congestion. Report Dictated By: Danilo Solano MD at 02/19/2018 7:41 PM Report E-Signed By: Danilo Solano MD at 02/19/2018 7:42 PM WSN:[id number] PATIENT NAME: Jayden Dixon : 1965 MR: [id number] V: [id number] EXAM DATE: ORDERING PHYSICIAN: CARY GUNN TECHNOLOGIST: Location: [facility] [place] Patient: Jayden Dixon : 1965 Visit/Account:[id number] Date of Sevice: 02/19/2018 EXAMINATION: Head CT without intravenous contrast History: Headache TECHNIQUE: Contiguous axial images were obtained from the skull base to the vertex without intravenous contrast. One of the following dose optimization techniques was utilized in the performance of this exam: Automated exposure control; adjustment of the mA and/or kV according to the patient's size; or use of an iterative reconstruction technique. Specific details can be referenced in the facility's radiology CT exam operational policy. COMPARISON STUDIES: none FINDINGS: Visualized mastoid air cells / paranasal sinuses: negative Calvarium and scalp: negative White matter: negative Dural venous sinuses / arterial structures: negative Ventricles / sulci / fissures: Mildly prominent due to volume loss. Masses / hemorrhage / midline shift: negative Extra-axial spaces: negative IMPRESSION: No evidence of acute intracranial pathology. Report Dictated By: Danilo Solano MD at 02/19/2018 7:42 PM Report E-Signed By: Danilo Solano MD at 02/19/2018 7:44 PM WSN:[id number] Condition: Improved Discharge: Home PT/OT Follow Up For: ST Evaluation and Treat (He will need to arrange modified barium swallow with speech/swallowing therapy.) Time Spent: > 30 min Discharge Instructions Home Meds Active Scripts Amoxicillin/Pot Clav 600-42.9 Mg/5 Ml Susp (AMOX TR-K CLV 600-42.9/5 SUSP) 600 Mg/5 Ml Susp.recon, 1200 MG PO Q12H for 7 Days, #140 ML 0 Refills Prov:ZAIN MORAN MD 02/21/18 Reported Medications Calcium Polycarbophil (FIBER-LAX) 625 Mg Tablet, 500 MG PO QDAY 02/20/18 Petrolatum,White (VASELINE) 18 Ml Jelly.ml., 1 ALEKSANDAR TP BID Apply to lips twice daily. 02/20/18 Triamcinolone Acetonide 0.1% (TRIAMCINOLONE ACETONIDE 0.1%) 60 Ml Lotion, 1 ALEKSANDAR TP BID, BOT Apply to abdomen, hands, elbows and behind ears twice daily. 02/20/18 Sodium Chloride (MYRA-128) 3.5 Gm Oint...g., 1 ALEKSANDAR OU QHS Instill 1 ribbon into both eyes at bedtime. 02/20/18 Carboxymethyl/Gly/Poly80/Pf (REFRESH OPTIVE ADVANCED DROPS) 1 Each Droperette, 1 EACH OP SIX TIMES DAILY 02/20/18 Pantoprazole Sodium (PANTOPRAZOLE SODIUM) 40 Mg Tablet.dr, 40 MG PO BID, TAB.SR 02/20/18 Amoxicillin (AMOXICILLIN) 500 Mg Capsule, 2000 MG PO PRN 4 tabs one hour prior to dental or surgical appointments. 02/20/18 Sodium Chloride (MYRA-128) 15 Ml Drops, 1 GTT OU TID 02/20/18 Ibuprofen (IBUPROFEN) 200 Mg Tablet, 2 TAB PO Q6-8H Y for PAIN, TAB 02/20/18 Methylcellulose (CITRUCEL) 500 Mg Tablet, 2 TAB PO QHS 02/20/18 Cholecalciferol (Vitamin D3) (VITAMIN D3) 1,000 Unit Tablet, 2000 UNIT PO QHS, TAB 05/02/16 Sodium Chloride (SALINE NASAL SPRAY) 30 Ml Arrey, 2 SPRAY NS TID, SPRAY 05/02/16 Guaifenesin/D-Methorphan Hb/Pe (ROBAFEN CF LIQUID) 118 Ml Liquid, 20 ML PO Q4- 6H Y for CONGESTION 05/02/16 [place] Oil (OLIVE OIL) 480 Ml Oil, 2 GTT EACH EAR Monthly 2 drops in each ear once monthly on the 1st of each month. 05/02/16 Lytes/Yerba Yasemin (MOUTHKOTE SOLUTION) 60 Ml Arrey, 3-4 SPRAY MM TID, SPRAY 05/02/16 Hydrocortisone/Aloe Vera (HYDROCORTISONE 1% OINTMENT) 28 Gm Oint...g., 28 GM TP PRN 05/02/16 Multivitamin (GUMMI BEAR MULTIVITAMIN) 1 Each Tab.chew, 1 EACH PO QHS, TAB.CHEW 05/02/16 [place]-3 Fatty Acids (FISH OIL) 300 Mg Capsule, 1000 MG PO BID, CAPSULE 05/02/16 Cetyl Alc/Stearyl Alc/Pg/Sls (CETAPHIL CREAM) 454 Gm Cream..g., 454 GM TP BID 05/02/16 Menthol (BIOFREEZE) 118 Ml Gel..ml. 05/02/16 Bacitracin (BACITRACIN ZINC) 0.9 Gm Oint, 0.9 GM TP PRN Y for RASH Apply small amount to affected area to prevent infections and aid in healing. 05/02/16 Loperamide Hcl (ANTI-DIARRHEAL) 2 Mg Tablet, 2 TAB PO PRN Y for DIARRHEA 05/02/16 Calcium Carbonate/Mag Hydrox (ANTACID CHEWABLE TABLET) 1 Each Tab.chew, 500 MG PO PRN Y for HEARTBURN, TAB.CHEW Chew 2 tabs for upset stomach 05/02/16 Acetaminophen (TYLENOL EXTRA STRENGTH) 500 Mg Tablet, 1000 MG PO Q4-6H Y for PAIN, TAB 05/02/16 Levothyroxine Sodium (LEVOTHYROXINE SODIUM) 88 Mcg Tablet, 88 MCG PO QDAY 03/26/16 Allopurinol (ZYLOPRIM 300 MG TAB (OR EQUIV)) 300 Mg Tablet, 300 MG PO QDAY 07/20/13 Adalimumab (HUMIRA) 40 Mg/0.8 Ml Pen.ij.kit, 40 MG SQ every other week 07/20/13 Alprazolam (ALPRAZOLAM) 0.5 Mg Tab.rapdis, 0.5 MG PO PRN 1 tab one hour prior to dental appointments. 07/20/13 Discontinued Reported Medications Naproxen Sodium (NAPROXEN SODIUM) 220 Mg Capsule, 220 MG PO Q12H Y for PAIN, TAB 07/20/13 Albuterol Sulfate (VENTOLIN HFA) 18 Gm Inh, 1-2 PUFF INH PRN Y for SHORTNESS OF BREATH, INH 12/10/17 Petrolatum,White (VASELINE) 18 Ml Jelly.ml., 18 ML TP BID 05/02/16 Sodium Chloride (SALINE NASAL SPRAY) 30 Ml Arrey, 30 ML NS TID, SPRAY 05/02/16 Carboxymethyl/Gly/Poly80/Pf (REFRESH OPTIVE ADVANCED DROPS) 1 Each Droperette, 1 EACH OP DIRECTED 05/02/16 Ibuprofen (IBUPROFEN) 100 Mg Tab.chew, 2 TAB PO Q6H Y for PAIN, TAB.CHEW 05/02/16 Methylcellulose (With Sugar) (CITRUCEL POWDER) 454 Gm Powder, 454 GM PO DAILY 05/02/16 Guaifenesin (MUCINEX) 600 Mg Tablet.er, 1 TAB PO PRN 04/11/16 Amoxicillin (AMOXICILLIN) 500 Mg Capsule, 4 CAP PO DIRECTED, #15 CAPSULE 05/02/16 Discontinued Scripts Hydrocodone Bit/Acetaminophen (NORCO 5-325 TABLET) 1 Each Tablet, 1 EACH PO Q4H Y for PAIN, #30 TAB Prov:ROWAN DAN MD 12/16/17 Pantoprazole Sodium (PANTOPRAZOLE SODIUM) 40 Mg Tablet.dr, 40 MG PO QDAY, #60 TAB.SR 3 Refills Prov:ROWAN DAN MD 12/16/17 Follow up Referrals: Family Practice with Mindy Pagan Diet: Regular (with restrictions as outlined by Spech/Swallowing Therapy) Activity: As Tolerated Special Instructions: Follow up with Mindy CORDERO in next 5-7 days or sooner if any problems. Follow up with Speech/Swallowing Therapy in next 1-2 weeks. Copies to: MINDY PAGAN Venous Thromboembolism Antithrombotics Is Pt On Any Antithrombotics?: Yes ZAIN MORAN MD February 21, 2018 09:29
== END 2018-02-21 10:00 | disposition home or self-care (01) | DRG 919 ==
LOC: ER 18:13 → MED 22:42
PROVIDERS: ADMIT Internal Medicine; ATTEND Internal Medicine
DX: T88.8XXA Other specified complications of surgical and medical care, not elsewhere classified, initial encounter (principal); J69.0 Pneumonitis due to inhalation of food and vomit; G47.33 Obstructive sleep apnea (adult) (pediatric); R12 Heartburn; E03.9 Hypothyroidism, unspecified; Q90.9 Down syndrome, unspecified; M1A.9XX0 Chronic gout, unspecified, without tophus (tophi); L40.9 Psoriasis, unspecified; Y73.3 Surgical instruments, materials and gastroenterology and urology devices (including sutures) associated with adverse incidents; Y84.4 Aspiration of fluid as the cause of abnormal reaction of the patient, or of later complication, without mention of misadventure at the time of the procedure; Z99.81 Dependence on supplemental oxygen
CPT/HCPCS: 36415; 70450; 70491; 71045; 71260; 81001; 82040; 82247; 82310; 82374; 82435; 82565; 82947; 84075; 84132; 84155; 84295; 84450; 84460; 84520; 85025; 85651; 86140; 87040; 87088; 87502; 99285; A9270; C1726; C9113; J0743; J1200; J1650; J2001; J2550; J2704; J3490; J7030; J7050; Q9967

== ENCOUNTER → 2018-02-19 | Day surgery (SDC) | payer MEDICARE, MEDICAID ==
[~2018-02-19] VITALS: Ht 154.9 cm; Wt 64.0 kg
[~2018-02-19] MED LIST changes: -BARIUM SULFATE 176 GM BTL PO ONE; -BARIUM SULFATE 340 GM POWD ONE; +CALC625T65 PO; +CIT500PT PO; +GLYCOPYRROLATE 0.2MG/ML 1 ML INJ IVP ONE; +IBUP-56 PO; +LIDOCAINE MPF 1% 5 ML VIAL ONE; +LIDOCAINE/SOD BICARB 8.4% SYR ID ONE; +NORMOSOL R SOLN(*) 1000 ML BAG 1,000 ML IV PRN; +PROPOFOL EMUL(*) 10MG/ML 20 ML 40 ML ONE; +SODI15DR18 OU; +SODI3.5O14 OU; +TRIA60LO10 TP; +[UNRECOGNIZED DRUG - CODE] EACH EAR; -[UNRECOGNIZED DRUG - CODE] MC
--- NOTE | 2018-02-19 07:06 | Post Operative Progress Note ---
Post Operative Progress Note Date: February 19, 2018 Time: 09:57 Surgeon: keisha Anesthesia: dr mullen Pre-Op Diagnosis: abnormal distal esophagus on ugi series Post-Op Diagnosis: dilated esophagus with solid foood in esophagus, no obvious narrowing Procedure(s): egd and balloon dilatation to 20 mm ROWAN DAN MD February 19, 2018 07:06
--- NOTE | 2018-02-19 07:07 | Short(Outpt) Discharge Summary ---
Discharge Summary Reason for Hosp/Final Diag: (1) Abnormal upper gastrointestinal barium series Hospital Course & Plan: egd and balloon dilation to 20 mm of distal esophagus, dilated esophagus and solid food in esophagus. Departure Discharge to: Home Discharge Instructions Home Meds Active Scripts Hydrocodone Bit/Acetaminophen (NORCO 5-325 TABLET) 1 Each Tablet, 1 EACH PO Q4H Y for PAIN, #30 TAB Prov:ROWAN DAN MD 12/16/17 Pantoprazole Sodium (PANTOPRAZOLE SODIUM) 40 Mg Tablet.dr, 40 MG PO QDAY, #60 TAB.SR 3 Refills Prov:ROWAN DAN MD 12/16/17 Reported Medications Albuterol Sulfate (VENTOLIN HFA) 18 Gm Inh, 1-2 PUFF INH PRN Y for SHORTNESS OF BREATH, INH 12/10/17 Cholecalciferol (Vitamin D3) (VITAMIN D3) 1,000 Unit Tablet, 2000 UNIT PO DAILY , TAB 05/02/16 Petrolatum,White (VASELINE) 18 Ml Jelly.ml., 18 ML TP BID 05/02/16 Sodium Chloride (SALINE NASAL SPRAY) 30 Ml [place], 30 ML NS TID, SPRAY 05/02/16 Sodium Chloride (SALINE NASAL SPRAY) 30 Ml [place], 30 ML NS, SPRAY 05/02/16 Guaifenesin/D-Methorphan Hb/Pe (ROBAFEN CF LIQUID) 118 Ml Liquid, 5 ML PO PRN Y for CONGESTION 05/02/16 Carboxymethyl/Gly/Poly80/Pf (REFRESH OPTIVE ADVANCED DROPS) 1 Each [place], 1 EACH OP DIRECTED 05/02/16 [place] Oil (OLIVE OIL) 480 Ml Oil, 480 ML MC DAILY 05/02/16 Lytes/Yerba Yasemin (MOUTHKOTE SOLUTION) 60 Ml [place], 60 ML MM TID, SPRAY 05/02/16 Ibuprofen (IBUPROFEN) 100 Mg Tab.chew, 2 TAB PO Q6H Y for PAIN, TAB.CHEW 05/02/16 Hydrocortisone/Aloe Vera (HYDROCORTISONE 1% OINTMENT) 28 Gm Oint...g., 28 GM TP 05/02/16 Multivitamin (GUMMI BEAR MULTIVITAMIN) 1 Each Tab.chew, 1 EACH PO DAILY, TAB.CHEW 05/02/16 [place]-3 Fatty Acids (FISH OIL) 300 Mg Capsule, 300 MG PO DAILY, CAPSULE 05/02/16 Methylcellulose (With Sugar) (CITRUCEL POWDER) 454 Gm Powder, 454 GM PO DAILY 05/02/16 Cetyl Alc/Stearyl Alc/Pg/Sls (CETAPHIL CREAM) 454 Gm Cream..g., 454 GM TP 05/02/16 Menthol (BIOFREEZE) 118 Ml Gel..ml. 05/02/16 Bacitracin (BACITRACIN ZINC) 0.9 Gm Oint, 0.9 GM TP PRN Y for RASH 05/02/16 Loperamide Hcl (ANTI-DIARRHEAL) 2 Mg Tablet, 2 TAB PO PRN Y for DIARRHEA 05/02/16 Calcium Carbonate/Mag Hydrox (ANTACID CHEWABLE TABLET) 1 Each Tab.chew, 2 EACH PO PRN Y for HEARTBURN, TAB.CHEW 05/02/16 Amoxicillin (AMOXICILLIN) 500 Mg Capsule, 4 CAP PO DIRECTED, #15 CAPSULE 05/02/16 Acetaminophen (TYLENOL EXTRA STRENGTH) 500 Mg Tablet, 1000 MG PO PRN Y for PAIN , TAB 05/02/16 Guaifenesin (MUCINEX) 600 Mg Tablet.er, 1 TAB PO PRN 04/11/16 Levothyroxine Sodium (LEVOTHYROXINE SODIUM) 88 Mcg Tablet, 88 MCG PO QDAY 03/26/16 Naproxen Sodium (NAPROXEN SODIUM) 220 Mg Capsule, 220 MG PO TID, CAPSULE 07/20/13 Allopurinol (ZYLOPRIM 300 MG TAB (OR EQUIV)) 300 Mg Tablet, 300 MG PO QDAY 07/20/13 Adalimumab (HUMIRA) 40 Mg/0.8 Ml Pen.ij.kit, 40 MG SQ every other week 07/20/13 Alprazolam (ALPRAZOLAM) 0.5 Mg Tab.rapdis, 0.5 MG PO PRN 07/20/13 Diet: Regular Activity: As Tolerated ROWAN DAN MD February 19, 2018 07:07
[2018-02-19 09:19] VITALS: BP 102/61
[2018-02-19 10:06] VITALS: BP 85/48
[2018-02-19 10:15] VITALS: BP 88/62
[2018-02-19 11:09] VITALS: BP 102/65
[2018-02-19 11:10] VITALS: BP 100/47
--- NOTE | 2018-02-19 15:44 | OPERATIVE REPORT 1 ---
EVENT DATE: February 19, 2018 SURGEON: Rick Walters MD ANESTHESIOLOGIST: Jeromy Hyatt MD ANESTHESIA: Sedation. PREOPERATIVE DIAGNOSIS Abnormal upper gastrointestinal tract. POSTOPERATIVE DIAGNOSES 1. Retained food in the esophagus. 2. Dilated esophagus. PROCEDURE PERFORMED Esophagogastroduodenoscopy with balloon dilatation to 20 mm. DESCRIPTION OF PROCEDURE The patient was placed in the left lateral decubitus position and given intravenous sedation. The flexible gastroscope was inserted. Upon entering the esophagus, he had solid food material in the esophagus, making complete visualization difficult. We were able to work our way beyond this material. He had a dilated esophagus, so we were able to get into the stomach which was empty, through the pylorus, and into the second and third portions of the duodenum which were normal. Duodenal bulb was normal. Pylorus was normal. Antrum was normal. Body of the stomach appeared to be normal. Scope was retroflexed. There were no fundic lesions. Scope was slowly withdrawn. It was not especially tight getting the scope through. It seemed more tortuous. We did lay the balloon across there and did dilatation three different times to 20 mm. I could not identify any lesions, but complete visualization was difficult because of the foodstuffs. Procedure was then terminated. Patient tolerated the procedure well. No apparent complication. [facility]
[2018-02-20 09:12] VITALS: Ht 154.9 cm; Wt 64.0 kg
== END ==
LOC: OR 00:30
PROVIDERS: ATTEND Surgery
DX: T18.128A Food in esophagus causing other injury, initial encounter (principal); K22.2 Esophageal obstruction; K22.8 Other specified diseases of esophagus
CPT/HCPCS: 43249; J2001; J2704; J3490

== ENCOUNTER → 2018-02-25 | Outpatient (CLI) | payer MEDICARE, MEDICAID ==
[2018-02-20 09:12] VITALS: BMI 30.4
[~2018-02-25] MED LIST changes: +AMOX600S32 PO; +BARIUM SULFATE 148 GM POWDER ONE; +BARIUM SULFATE 240 ML ORAL SUS (NECTAR) ONE; +CALC625T65 PO; +CIT500PT PO; +IBUP-56 PO; +SODI15DR18 OU; +SODI3.5O14 OU; +TRIA60LO10 TP
--- NOTE | 2018-02-25 14:19 | SLP MODIFIED BARIUM SWALLOW ---
[*]Speech Language Pathology Modified Barium Swallow Evaluation Report Date of Evaluation: 02/25/2018 Patient Name: Jayden Bhatti Patient : 1965 Physician: GIL Rae Clinician: Sandrine Coronel M.S., CCC-WAITER/WAITRESS INFORMAL BACKGROUND The patient is an 53-year-old male referred for modified barium swallow study following recent hospitalization w/ suspected aspiration pneumonia. Pt w/ PMHx significant for Down's Syndrome and esophageal dysphagia. He participated in an esophagram on 02/03/18, w/ results illustrating high-grade narrowings at the cervical thoracic junction of the esophagus and at the LES, large retention of esophageal secretions, and very slow passage of barium material to the stomach. Endoscopy was recommended, w/ EGD balloon dilation to 20mm completed on 02/19/18. During EGD, solid food material was discovered in the pt's esophagus despite reported adherence to NPO recs prior to procedure. Following dilation, pt was hospitalized the same day w/ pneumonia. MBSS was recommended to further analyze swallow mechanism and to r/o possible contribution of oropharyngeal dysfunction on overall dysphagia. Oxygen Supplementation: None Level of Consciousness: Non-altered Cognitive/Linguistic: WNL; impairments related to developmental disability. Orientation: x4 Language: -expressive: WFL -receptive: WFL Speech: -non-apraxic -non-dysarthric Voice -Dysphonia: none -Nasal emission: No -Hypernasality: No -Wet Vocal Quality: No -Patient reports no significant changes in voice. Non-verbal Oral Structure and Function: WFL. Mildly decreased coordination of oral musculature. MODIFIED BARIUM SWALLOW In conjunction with radiology, lateral view with trials of the following consistencies: thin barium liquid via cup and straw sips, barium marked pureed, soft solids, mixed consistencies, regular textures, and a 1cm barium pill. Pt's caregiver (Nidhi) was present throughout assessment procedures. ORAL STAGE Thin Liquids: Mild anterior spillage w/ large bolus sizes consumed in rapid succession. Pureed Solids: WFL Soft Solids: Mild oral residue. Regular Solids: Prolonged mastication, mild oral residue. Mixed Consistencies Foods: Mild, premature posterior loss of bolus. Barium Pill: WFL. PHARYNGEAL STAGE Thin Liquid: Mild dysphagia. Impulsive w/ trials of thin liquids via straw and cup sip, but responded well to verbal cues for encouragement of decreased rate of intake. Pt w/ delayed swallow onset observed to the level of the valleculae w / controlled 15ml sip, and more severe delay to the level of the pyriforms w/ successive sips via cup and straw. Pt w/ mild post-swallow pharyngeal residue in the valleculae, posterior pharyngeal wall, and pyriforms. Residue was cleared to trace amounts w/ execution of second swallow. BOT retraction and pharyngeal wall movement mildly weak/reduced. Hyolaryngeal elevation, hyolaryngeal excursion, and overall airway protection all WFL. UES appeared to be relaxing appropriately w/ out significant pooling in the pyriforms. ALL Solids (puree, soft, regular, and mixed): Mild dysphagia. Delayed swallow onset observed to the level of the valleculae, w/ mild post-swallow pharyngeal residue in the valleculae, posterior pharyngeal wall, and pyriforms. Residue was cleared to trace amounts w/ execution of second swallow. BOT retraction and pharyngeal wall movement mildly weak/reduced. Hyolaryngeal elevation, hyolaryngeal excursion, and overall airway protection all WFL. UES appeared to be relaxing appropriately w/ out significant pooling in the pyriforms. Penetration/Aspiration Scale*: Thin liquid: Score of 1, contrast does not enter airway Puree: Score of 1, contrast does not enter airway Soft solids: Score of 1, contrast does not enter airway Mixed consistencies: Score of 1, contrast does not enter airway Regular solids: Score of 1, contrast does not enter airway *([place] et al. 1996) ESOPHAGEAL STAGE Peristaltic movement appears to be severely impaired. Possible reduction in LES opening. Significant esophageal stasis. BARIUM PILL: 1 cm barium pill taken with thin liquids. Unable to witness or verify clearance of pill from esophagus 2/2 significant retention of previously assessed liquids and solids, and subsequent lack of adequate contrast. Continue close contact and frequent consultation w/ GI specialist. SUMMARY AND RECOMMENDATIONS Aspiration Risk: Mild to moderate risk w/ all consistencies 2/2 severity of esophageal dysphagia and concern for aspiration of reflux. 1. Diet: dysphagia advanced solids. Provided education re: appropriate textures , and encouraged pt/caregiver to avoid problematic foods. 2. Patient was provided with verbal/visual instruction and educational handouts regarding swallow anatomy and safe swallow recommendations. -One bite/sip at a time -Small bites/sips -Upright during and at least 45 min after PO intake -Alternate liquids/solids -Avoid problematic foods -Crush medications -Frequent, smaller meals throughout the day vs 3 large meals 3. Recommend close contact and consultation w/ GI specialist for appropriate management of esophageal dysphagia. Thank you for this referral. Please call [phone] to contact the WAITER/WAITRESS INFORMAL. Sandrine Coronel M.S., [facility]-WAITER/WAITRESS INFORMAL [facility]
--- NOTE | 2018-02-25 17:22 | RADIOLOGY IMAGING REPORT ---
FACILITY: [facility] PATIENT NAME: Jayden Bhatti : 1965 MR: [id number] V: [id number] EXAM DATE: ORDERING PHYSICIAN: CYNDEE ROMAN TECHNOLOGIST: [place] [facility] [place] [place]den B[place] : 1965 Visit/Account:[id number] Date of Sevice: 02/25/2018 Exam type: ESOPH VIDEO SWALLOWING History: Aspiration pneumonia, esophageal dysmotility Comparison: Esophagram performed February 03, 2018. Findings: The modified barium swallow was performed by the speech pathologist. Fluoroscopic assistance was pro vided. Patient received various liquids and solids substances and a barium tablet. A large amount o f barium and food substances pooled within the dilated esophagus. There is very slow emptying of the esophagus. Please see the speech pathologist report for complete details. The fluoroscopy dose are a product was 195.87 micro-Kendall per meter squared IMPRESSION: 1. As above Report Dictated By: Cookie Piedra MD at 02/25/2018 5:17 PM Report E-Signed By: Cookie Piedra MD at 02/25/2018 5:19 PM WSN:[email or web address]
== END ==
LOC: RAD 02:16
PROVIDERS: ATTEND Nurse Practitioner Family
DX: J69.0 Pneumonitis due to inhalation of food and vomit (principal); K22.4 Dyskinesia of esophagus; L40.50 Arthropathic psoriasis, unspecified
CPT/HCPCS: 74230

== ENCOUNTER → 2018-03-25 | Outpatient (CLI) | payer MEDICARE, MEDICAID ==
[2018-02-20 09:12] VITALS: BMI 30.4
[~2018-03-25] MED LIST changes: -BARIUM SULFATE 148 GM POWDER ONE; -BARIUM SULFATE 240 ML ORAL SUS (NECTAR) ONE
--- NOTE | 2018-03-25 15:10 | RADIOLOGY IMAGING REPORT ---
FACILITY: [facility] [place] PATIENT NAME: Jayden Bhatti : 1965 MR: [id number] V: [id number] EXAM DATE: ORDERING PHYSICIAN: SARITHA FOFANA TECHNOLOGIST: [place] [facility] [place]den Bhatti : 1965 Visit/Account:[id number] Date of Sevice: 03/25/2018 Exam type: CHEST PA AND LAT History: History of pneumonia, persistent fever Comparison: PA and lateral chest October 05, 2016 and single view chest February 19, 2018. Findings: There is mild chronic peribronchial thickening seen throughout the lungs. This may be subtly increas ed when compared the prior study. No lobar infiltrates are seen. There is no evidence of pleural ef fusions or overt primary edema. There is mild right apical parenchymal scarring similar to the prior study. The cardiac swelling is normal in size. There is a dextroconvex scoliosis of the thoracic s pine. IMPRESSION: 1. Chronic peribronchial thickening bilaterally perhaps subtly increased when compared to the prior study which could represent acute bronchitis. Report Dictated By: Cookie Piedra MD at 03/25/2018 3:01 PM Report E-Signed By: Cookie Piedra MD at 03/25/2018 3:05 PM WSN:[email or web address]
== END ==
LOC: RAD 14:15
PROVIDERS: ATTEND Nurse Practitioner Family
DX: R91.8 Other nonspecific abnormal finding of lung field (principal)
CPT/HCPCS: 71046

== ENCOUNTER → 2018-04-08 | Outpatient (CLI) | payer MEDICARE, MEDICAID ==
[2018-02-20 09:12] VITALS: BMI 30.4
[2018-04-08 09:39] LABS: PLATELET COUNT, AUTOMATED 308 K/uL (150-450)
--- NOTE | 2018-04-08 10:44 | RADIOLOGY IMAGING REPORT ---
[place] [facility] [place] Jayden Bhatti : 1965 MR: [id number] V: [id number] EXAM DATE: ORDERING PHYSICIAN: SARITHA FOFANA TECHNOLOGIST: Location: [facility] Patient: Jayden Bhatti : 1965 Visit/Account:[id number] Date of Sevice: 04/08/2018 Exam type: CHEST PA AND LAT History: Aspiration pneumonia, barking cough, fever Comparison: March 25, 2018. Findings: Again noted is chronic peribronchial thickening bilaterally. No lobar infiltrates are seen. Right a pical pleural parenchymal scarring again seen. The cardiac silhouette is normal in size. The trache a is in midline. There is a dextroconvex scoliosis of the lower thoracic spine. IMPRESSION: 1. Chronic peribronchial thickening although no acute lobar infiltrates are seen Report Dictated By: Cookie Piedra MD at 04/08/2018 10:28 AM Report E-Signed By: Cookie Piedra MD at 04/08/2018 10:40 AM WSN:[email or web address]
== END ==
LOC: RAD 09:12
PROVIDERS: ATTEND Nurse Practitioner Family
DX: J69.0 Pneumonitis due to inhalation of food and vomit (principal); R05 Cough; R50.9 Fever, unspecified; R01.0 Benign and innocent cardiac murmurs
CPT/HCPCS: 36415; 71046; 81001; 82040; 82247; 82310; 82374; 82435; 82565; 82947; 84075; 84132; 84155; 84295; 84443; 84450; 84460; 84520; 85025

== ENCOUNTER 2018-05-14 02:09 | Day surgery (SDC) | payer MEDICARE, MEDICAID ==
[2018-02-20 09:12] VITALS: Ht 160 cm; Wt 59.9 kg
[~2018-05-14] VITALS: Ht 160 cm; Wt 59.9 kg
[~2018-05-14 02:09] MED LIST changes: +OMEP40CA48 PO; -TRIA60LO10 TP; +TRIA60LO3 TP
[2018-05-14 08:29] VITALS: BP 104/69
[2018-05-14] MEDS ORDERED: LIDOCAINE/SOD BICARB 8.4% SYR ID ONE (10:00)
[2018-05-14] MEDS ORDERED: NORMOSOL R SOLN(*) 1000 ML BAG 1,000 ML IV PRN (10:00)
[2018-05-14 11:45] VITALS: BP 84/60
[2018-05-14 12:11] VITALS: BP 95/55
[2018-05-14 12:12] VITALS: BP 83/55
[2018-05-14 12:27] VITALS: BP 92/58
[2018-05-14 12:34] VITALS: BP 87/60
== END 2018-05-14 11:45 | disposition home or self-care (01) ==
LOC: OR 02:09
PROVIDERS: ATTEND Internal Medicine Gastroenterology
DX: K20.9 Esophagitis, unspecified (principal); K44.9 Diaphragmatic hernia without obstruction or gangrene; K29.70 Gastritis, unspecified, without bleeding
CPT/HCPCS: 36416; 82948; 88305; 88313; 88344; C1769

== ENCOUNTER → 2018-06-12 | Outpatient (CLI) | payer MEDICARE, MEDICAID ==
[2018-02-20 09:12] VITALS: BMI 30.4
--- NOTE | 2018-06-12 11:25 | RADIOLOGY IMAGING REPORT ---
FACILITY: [facility] PATIENT NAME: Jyaden Bhatti : 1965 MR: [id number] V: [id number] EXAM DATE: ORDERING PHYSICIAN: SARITHA FOFANA TECHNOLOGIST: Location: [facility] - [place] Patient: Jayden Bhatti : 1965 Visit/Account:[id number] Date of Sevice: 06/12/2018 CHEST PA AND LAT HISTORY: Aspiration, pneumonia. COMPARISON: 04/08/2018 FINDINGS: Frontal and lateral views chest obtained. Lines/tubes: None. Lungs/pleura: Lungs hyperinflated consistent with air trapping. Mild diffuse coarsening of the pulmon melani markings but unchanged and likely chronic. Mild chronic appearing right apical scarring. No focal airspace infiltrate, effusion, pneumothorax or evidence of congestive failure. Cardiomediastinum and cornelio: Within normal limits. Bones/soft tissues: Mild dextrocurvature thoracolumbar junction which may be positional. Straightenin g of normal thoracic kyphosis and moderately severe compression fracture L1, chronic in appearance. Additional findings: None. IMPRESSION: Chronic findings without evidence of an acute intrathoracic process or other significant interval adan nge. Results were called to [facility] SARITHA FOFANA at 06/12/2018 11:20 AM. Report Dictated By: Cosmo Grigsby MD at 06/12/2018 10:08 AM Report E-Signed By: Cosmo Grigsby MD at 06/12/2018 11:20 AM WSN:[id number]
== END ==
LOC: RAD 09:32
PROVIDERS: ATTEND Nurse Practitioner Family
DX: N10 Acute pyelonephritis (principal); J84.10 Pulmonary fibrosis, unspecified; M40.04 Postural kyphosis, thoracic region; S32.010A Wedge compression fracture of first lumbar vertebra, initial encounter for closed fracture; R79.81 Abnormal blood-gas level; R13.10 Dysphagia, unspecified; K21.9 Gastro-esophageal reflux disease without esophagitis; R14.2 Eructation
CPT/HCPCS: 71046

== ENCOUNTER → 2019-02-11 | Outpatient (CLI) | payer MEDICARE, MEDICAID ==
[2018-02-20 09:12] VITALS: BMI 30.4
[~2019-02-11] MED LIST changes: -HYDR-4309 PO; +HYDR-653 PO; -NAPR220C11 PO; +NAPR220C62 PO
[2019-02-11 15:10] LABS: PLATELET COUNT, AUTOMATED 254 K/uL (150-450)
== END ==
LOC: LAB 14:53
PROVIDERS: ATTEND Surgery
DX: G47.33 Obstructive sleep apnea (adult) (pediatric) (principal)
CPT/HCPCS: 36415; 85025

== ENCOUNTER → 2019-02-12 | Outpatient (CLI) | payer MEDICARE, MEDICAID ==
[2018-02-20 09:12] VITALS: BMI 30.4
[~2019-02-12] MED LIST changes: +LEVO-3 PO; +NAPR220C12 PO; +OXYGENHOME INH
== END ==
LOC: RESP 03:14
PROVIDERS: ATTEND Nurse Practitioner Family
DX: K22.2 Esophageal obstruction (principal); R79.81 Abnormal blood-gas level
CPT/HCPCS: 94618

== ENCOUNTER 2019-03-04 01:01 | Day surgery (SDC) | payer MEDICARE, MEDICAID ==
[2018-02-20 09:12] VITALS: Ht 154.9 cm; Wt 60.8 kg
[2019-03-04] VITALS (7 sets, daily range): BP systolic 75–98; BP diastolic 47–60
[~2019-03-04] VITALS: Ht 154.9 cm; Wt 60.8 kg
[2019-03-04] MEDS ORDERED: PROPOFOL EMUL(*) 10MG/ML 20 ML 40 ML ONE (07:04)
[2019-03-04] MEDS ORDERED: GLYCOPYRROLATE 0.2MG/ML 1 ML INJ IVP ONE (08:35)
[2019-03-04] MEDS ORDERED: LIDOCAINE/SOD BICARB 8.4% SYR ID ONE (10:10)
[2019-03-04] MEDS ORDERED: NORMOSOL R SOLN(*) 1000 ML BAG 1,000 ML IV PRN (10:10)
== END 2019-03-04 13:50 | disposition home or self-care (01) ==
LOC: OR 01:01
PROVIDERS: ATTEND Internal Medicine Gastroenterology
DX: K21.9 Gastro-esophageal reflux disease without esophagitis (principal); R13.10 Dysphagia, unspecified; T18.128A Food in esophagus causing other injury, initial encounter
CPT/HCPCS: 43239; 43249; 88305; 88313; 88342; C1726; J2704; J3490

== ENCOUNTER → 2019-03-24 | Outpatient (REF) | payer MEDICARE, MEDICAID ==
[2018-02-20 09:12] VITALS: BMI 30.4
[2019-03-24 17:15] LABS: PLATELET COUNT, AUTOMATED 255 K/uL (150-450)
== END ==
PROVIDERS: ATTEND Nurse Practitioner Family
DX: R11.10 Vomiting, unspecified (principal)
CPT/HCPCS: 82040; 82150; 82247; 82310; 82374; 82435; 82565; 82947; 83690; 84075; 84132; 84155; 84295; 84450; 84460; 84520; 85025

== ENCOUNTER → 2019-03-24 | Outpatient (CLI) | payer MEDICARE, MEDICAID ==
[2018-02-20 09:12] VITALS: BMI 30.4
[~2019-03-24] MED LIST changes: +IOPAMIDOL 76% 100 ML INFUS BTL 100 ML ONE
--- NOTE | 2019-03-24 19:21 | RADIOLOGY IMAGING REPORT ---
FACILITY: [facility] PATIENT NAME: Jayden Bhatti : 1965 MR: [id number] V: [id number] EXAM DATE: ORDERING PHYSICIAN: STEPHANIE CAMERON TECHNOLOGIST: Location: [facility] - [place] Patient: Jayden Bhatti : 1965 Visit/Account:[id number] Date of Sevice: 03/24/2019 CT abdomen and pelvis with IV contrast Indication: Abdominal pain and vomiting. Comparison: None available. . Technique: Axial CT images were obtained through the abdomen and pelvis during injection of nonioni c iodinated intravenous contrast. Reformatted coronal and sagittal images were also obtained. One of the following dose optimization techniques was utilized in the performance of this exam: Autom ated exposure control; adjustment of the mA and/or kV according to the patient's size; or use of an i terative reconstruction technique. Specific details can be referenced in the facility's radiology C T exam operational policy. Contrast: 75 ml of Isovue-370 IV contrast. Findings: Lower lung liang: Limited views lower lung field are unremarkable. Mild pericardial fluid. Liver: No focal lesions. The vessels appear to be patent. Biliary: Multiple tiny layering gallstones without other gallbladder or biliary abnormality. Pancreas: No focal abnormality. Spleen: Heterogeneous appearance without well-defined abnormality. Adrenal glands: Unremarkable. Kidneys / retroperitoneum: Left kidney does show several tiny stones in the collecting system without hydronephrosis. The right kidney shows no stones or hydronephrosis. No discrete renal lesions. Bowel / peritoneum / mesenteries: There is mild diffuse wall thickening of the rectum and rectosigmoi d colon region without a defined lesion or obstruction. The colon shows no other focal abnormality. T he appendix is not definitely visualized. Small bowel shows no focal normality or obstruction. Stomac h is unremarkable with a moderate hiatal hernia. There is some fluid in the distal esophagus. No free air, free fluid or fluid collection. Lymph node assessment: No pathologic adenopathy identified. Pelvic structures: The gallbladder does show diffuse circumferential wall thickening without focal abnormality. The prostate is mildly enlarged causing impression to the urinary bladder without focal abnormality. The remaining pelvic structures visualized within normal limits. Vessels: No significant atherosclerotic calcifications seen throughout a nonaneurysmal abdominal aort a and branches. Musculoskeletal / Body wall: There is compression fracture of the L1 vertebral body with a least 70 p ercent without significant retropulsion. There appears to be 6 nonrib-bearing lumbar vertebral bodies . No acute fractures or aggressive bony lesions. IMPRESSION: 1. There is wall thickening of the rectum and rectosigmoid colon without focal abnormality. There is no discrete surrounding inflammation however this could be due to early inflammation or infection eugenia edson a neoplastic process. 2. Circumferential wall thickening of the urinary bladder without focal abnormality. This could be du e to some mild outlet obstruction from the mildly enlarged prostate versus infection. 3. Cholelithiasis. 4. Moderate hiatal hernia. Fluid is seen in distal esophagus which could be due to reflux disease. 5. Compression of the L1 vertebral body without significant retropulsion. Age of which is indetermina te. There appears to be 6 nonrib-bearing lumbar vertebral bodies. 6. Other chronic findings as above. I called report to STEPHANIE CAMERON at 03/24/2019 7:15 PM. Report Dictated By: Yoan Hernandes at 03/24/2019 6:46 PM Report E-Signed By: Yoan Hernandes at 03/24/2019 7:17 PM WSN:[id number]
== END ==
LOC: CT 17:53
PROVIDERS: ATTEND Nurse Practitioner Family
DX: K80.20 Calculus of gallbladder without cholecystitis without obstruction (principal); K46.9 Unspecified abdominal hernia without obstruction or gangrene
CPT/HCPCS: 74177; Q9967

== ENCOUNTER 2019-03-30 22:21 | Emergency (ER) | payer MEDICARE, MEDICAID ==
[2018-02-20 09:12] VITALS: BMI 30.4
[~2019-03-30 22:21] MED LIST changes: -IOPAMIDOL 76% 100 ML INFUS BTL 100 ML ONE
[2019-03-30] MEDS ORDERED: ONDANSETRON 4 MG/2 ML VIAL IVP ONE (22:50)
[2019-03-30] MEDS ORDERED: NS(*) 0.9% 1000 ML BAG 1,000 ML IV ONE (22:50)
[2019-03-30 23:02] LABS: PLATELET COUNT, AUTOMATED 273 K/uL (150-450)
[2019-03-30] MEDS ORDERED: IOPAMIDOL 76% 100 ML INFUS BTL 100 ML ONE (23:05)
--- NOTE | 2019-03-30 23:30 | ER Report ---
History and Physical Time Seen By MD: 22:29 Hx. of Stated Complaint: GALLSTONE ISSUES/ ABDOMINAL PAIN/ VOMITING HPI/ROS CHIEF COMPLAINT: abdominal pain, vomiting and dehydration HISTORY OF PRESENT ILLNESS: This is a 54 year old male. He has had problems with GERD and esophageal strictures. Recent EGD and dilation. Found to have severe problems in lower esophagus, that did not seem to work well with the dilation, but had been doing a little better. Also history of gallstones reported in the past. Today, started having vomiting and complaining of right upper abdominal pain, continuing through the day. No fevers noted. He reported to staff he was having bowel movements, reported them being hard. He has been urinating as well, but possilby less. Whenever he tries to eat something, he immediately vomits. He does so with liquid as well. Pain difficult to tell, the patient will say yes and no, but not consistent, based on his Down Syndrome and mental disability. REVIEW OF SYSTEMS: Unable to obtain otherwise. Allergies: Coded Allergies: No Known Drug Allergies (Unverified , 02/26/19) Home Meds Reported Medications Lytes/Yerba Yasemin (MOUTHKOTE SOLUTION) 60 Ml Pingree, 3 SPRAYS MM TID, SPRAY 03/31/19 Fluconazole (FLUCONAZOLE) 200 Mg Tablet, 200 MG PO QDAY 03/31/19 Oxygen (OXYGEN) Inha, 2 L INH HS, L 02/26/19 Levothyroxine Sodium (LEVOTHYROXINE SODIUM) 100 Mcg Tablet, 100 MCG PO QDAY, TAB 02/26/19 Omeprazole (OMEPRAZOLE) 40 Mg Capsule.dr, 40 MG PO QDAY, CAP 05/07/18 Calcium Polycarbophil (FIBER-LAX) 625 Mg Tablet, 500 MG PO QDAY 02/20/18 Petrolatum,White (VASELINE) 18 Ml Jelly.ml., 1 ALEKSANDAR TP BID Apply to lips twice daily. 02/20/18 Triamcinolone Acetonide 0.1% (TRIAMCINOLONE ACETONIDE 0.1%) 60 Ml Lotion, 1 ALEKSANDAR TP BID, BOT Apply to abdomen, hands, elbows and behind ears twice daily. 02/20/18 Sodium Chloride (MYRA-128) 3.5 Gm Oint...g., 1 ALEKSANDAR OU QHS Instill 1 ribbon into both eyes at bedtime. 02/20/18 Carboxymethyl/Gly/Poly80/Pf (REFRESH OPTIVE ADVANCED DROPS) 1 Each Droperette, 1 EACH OP SIX TIMES DAILY 02/20/18 Methylcellulose (CITRUCEL) 500 Mg Tablet, 2 TAB PO QHS 02/20/18 Cholecalciferol (Vitamin D3) (VITAMIN D3) 1,000 Unit Tablet, 2000 UNIT PO QHS, TAB 05/02/16 Sodium Chloride (SALINE NASAL SPRAY) 30 Ml Pingree, 2 SPRAY NS TID, SPRAY 05/02/16 [place] Oil (OLIVE OIL) 480 Ml Oil, 2 GTT EACH EAR Monthly 2 drops in each ear once monthly on the 1st of each month. 05/02/16 Multivitamin (GUMMI BEAR MULTIVITAMIN) 1 Each Tab.chew, 1 EACH PO QHS, TAB.CHEW 05/02/16 Cetyl Alc/Stearyl Alc/Pg/Sls (CETAPHIL CREAM) 454 Gm Cream..g., 454 GM TP BID 05/02/16 Loperamide Hcl (ANTI-DIARRHEAL) 2 Mg Tablet, 2 TAB PO PRN PRN for DIARRHEA 05/02/16 Calcium Carbonate/Mag Hydrox (ANTACID CHEWABLE TABLET) 1 Each Tab.chew, 500 MG PO PRN PRN for HEARTBURN, TAB.CHEW Chew 2 tabs for upset stomach 05/02/16 Allopurinol (ZYLOPRIM 300 MG TAB (OR EQUIV)) 300 Mg Tablet, 300 MG PO QDAY 07/20/13 Adalimumab (HUMIRA) 40 Mg/0.8 Ml Pen.ij.kit, 40 MG SQ every other week 07/20/13 Alprazolam (ALPRAZOLAM) 0.5 Mg Tab.rapdis, 0.5 MG PO PRN 1 tab one hour prior to dental appointments. 07/20/13 Discontinued Reported Medications Petrolatum,White (VASELINE) 18 Ml Jelly.ml., 18 ML TP BID prevent chapped lips 02/26/19 Naproxen Sodium (ALEVE) 220 Mg Capsule, 220 MG PO BID PRN for PAIN, CAPSULE 02/26/19 Amoxicillin (AMOXICILLIN) 500 Mg Capsule, 2000 MG PO PRN 4 tabs one hour prior to dental or surgical appointments. 02/20/18 Ibuprofen (IBUPROFEN) 200 Mg Tablet, 2 TAB PO Q6-8H PRN for PAIN, TAB 02/20/18 Guaifenesin/D-Methorphan Hb/Pe (ROBAFEN CF LIQUID) 118 Ml Liquid, 20 ML PO Q4-6H PRN for CONGESTION 05/02/16 Lytes/Yerba Yasemin (MOUTHKOTE SOLUTION) 60 Ml Pingree, 3-4 SPRAY MM TID, SPRAY 05/02/16 Hydrocortisone/Aloe Vera (HYDROCORTISONE 1% OINTMENT) 28 Gm Oint...g., 28 GM TP PRN 05/02/16 Menthol (BIOFREEZE) 118 Ml Gel..ml. 05/02/16 Bacitracin (BACITRACIN ZINC) 0.9 Gm Oint, 0.9 GM TP PRN PRN for RASH Apply small amount to affected area to prevent infections and aid in healing. 05/02/16 Acetaminophen (TYLENOL EXTRA STRENGTH) 500 Mg Tablet, 1000 MG PO Q4-6H PRN for PAIN, TAB 05/02/16 Reviewed Nurses Notes: Yes Hx Smoking: No Smoking Status: Never Smoker Hx Substance Use Disorder: No Hx Alcohol Use: No Constitutional Vital Sign - Last 24 Hours 03/30/19 03/30/19 03/30/19 03/30/19 22:26 23:00 23:23 23:30 Temp 98.3 Pulse 75 68 64 Resp 20 B/P (MAP) 110/72 88/61 (70) 103/62 (76) 90/54 (66) Pulse Ox 93 100 99 03/31/19 03/31/19 03/31/19 03/31/19 00:00 00:30 00:35 01:00 Pulse 73 70 70 B/P (MAP) 108/70 (83) 80/54 (63) 80/58 (65) Pulse Ox 92 97 99 03/31/19 03/31/19 03/31/19 03/31/19 01:05 01:30 01:35 02:00 Pulse 75 70 B/P (MAP) 84/54 (64) 83/45 (58) Pulse Ox 98 98 98 03/31/19 03/31/19 03/31/19 03/31/19 02:00 02:05 02:30 03:00 Pulse 75 71 66 B/P (MAP) 83/45 (58) 90/62 (71) 91/64 (73) Pulse Ox 98 96 98 6/10/0703/31/19 03/31/19 03/31/19 03:30 03:35 04:00 04:05 Pulse 58 56 62 B/P (MAP) 88/62 (71) 95/60 (72) Pulse Ox 96 100 100 03/31/19 03/31/19 03/31/19 03/31/19 04:09 04:14 04:19 04:30 Pulse 62 B/P (MAP) 99/60 (73) 98/68 (78) 94/65 (75) Pulse Ox 100 03/31/19 03/31/19 04:49 05:00 Pulse 64 B/P (MAP) 102/65 (77) Pulse Ox 100 Physical Exam General Appearance: The patient is alert. Eyes: Pupils are equal, round. No pallor, injection or icterus. ENT: Mucous membranes are somewhat dry. Otherwise normal oral mucosa. Neck: Supple and non tender. Respiratory: Lungs are clear to auscultation. Cardiovascular: Regular rate and rhythm. No murmurs, gallops or rubs. Normal capillary refill. Gastrointestinal: Abdomen is soft, patient winces throughout even if saying yes or no, not consistent when asking. Seems to be in more pain in epigastric and right upper quadrant areas. Normal active bowel sounds. No costovertebral angle tenderness with percussion. Neurological: Alert and oriented x3. Skin: Warm and dry. DIFFERENTIAL DIAGNOSIS: After history and physical exam, differential diagnosis was considered for patient with vomiting today and abdominal pain. Unable to keep any food or liquids down today. Concern for esophageal foreign body or strictures causing symptoms. Also other causes of epigastric pain including but not limited to biliary colic, cholecystitis, peptic ulcer disease, pancreatitis, and gastroenteritis. Medical Decision Making Data Points Result Diagram: 03/30/19 2245 03/30/19 2245 Laboratory Hematology Test 03/30/19 02:30 03/30/19 22:45 Urine Color Yellow Urine Clarity Clear Urine pH 5.0 pH (4.8-9.5) Urine Specific [place] 1.015 Urine Protein Negative mg/dL (NEGATIVE) Urine Glucose (UA) Negative mg/dL (NEGATIVE) Urine Ketones 20 mg/dL (NEGATIVE) Urine Blood Negative (NEGATIVE) Urine Nitrite Negative (NEGATIVE) Urine Bilirubin Negative (NEGATIVE) Urine Urobilinogen Negative mg/dL (0.2-1.9) Urine Leukocyte Esterase Negative (NEGATIVE) Urine RBC 2 /HPF (0-2/HPF) Urine WBC 1 /HPF (0-5/HPF) Urine Squamous Epithelial Cells Many /LPF (</=FEW) Urine Bacteria Negative /HPF (NONE-FEW) Urine Mucus Few /HPF (NONE-FEW) Red Blood Count 4.67 M/uL (4.00-5.60) Mean Corpuscular Volume 101.1 fL (80.0-96.0) Mean Corpuscular Hemoglobin 34.6 pg (26.0-33.0) Mean Corpuscular Hemoglobin Concent 34.2 g/dL (32.0-36.0) Red Cell Distribution Width 15.4 % (11.5-14.5) Mean Platelet Volume 8.4 fL (7.2-11.1) Neutrophils (%) (Auto) 59.9 % (39.4-72.5) Lymphocytes (%) (Auto) 26.4 % (17.6-49.6) Monocytes (%) (Auto) 11.9 % (4.1-12.4) Eosinophils (%) (Auto) 1.5 % (0.4-6.7) Basophils (%) (Auto) 0.3 % (0.3-1.4) Nucleated RBC Relative Count (auto) 0.1 /100WBC Neutrophils # (Auto) 3.7 K/uL (2.0-7.4) Lymphocytes # (Auto) 1.6 K/uL (1.3-3.6) Monocytes # (Auto) 0.7 K/uL (0.3-1.0) Eosinophils # (Auto) 0.1 K/uL (0.0-0.5) Basophils # (Auto) 0.0 K/uL (0.0-0.1) Nucleated RBC Absolute Count (auto) 0.00 K/uL Sodium Level 144 mmol/L (137-145) Potassium Level 3.4 mmol/L (3.5-5.0) Chloride Level 103 mmol/L (98-107) Carbon Dioxide Level 29 mmol/L (22-30) Blood Urea Nitrogen 14 mg/dl (9-21) Creatinine 0.90 mg/dl (0.66-1.25) Glomerular Filtration Rate Calc > 60.0 Random Glucose 93 mg/dl (75-110) Calcium Level 10.0 mg/dl (8.4-10.2) Total Bilirubin 0.7 mg/dl (0.2-1.3) Aspartate Amino Transf (AST/SGOT) 27 U/L (0-35) Alanine Aminotransferase (ALT/SGPT) 35 U/L (0-56) Alkaline Phosphatase 86 U/L (0-126) Total Protein 7.9 g/dl (6.3-8.2) Albumin 4.0 g/dl (3.5-5.0) Amylase Level 106 U/L (0-110) Lipase 284 U/L (23-300) Chemistry Test 03/30/19 02:30 03/30/19 22:45 Urine Color Yellow Urine Clarity Clear Urine pH 5.0 pH (4.8-9.5) Urine Specific [place] 1.015 Urine Protein Negative mg/dL (NEGATIVE) Urine Glucose (UA) Negative mg/dL (NEGATIVE) Urine Ketones 20 mg/dL (NEGATIVE) Urine Blood Negative (NEGATIVE) Urine Nitrite Negative (NEGATIVE) Urine Bilirubin Negative (NEGATIVE) Urine Urobilinogen Negative mg/dL (0.2-1.9) Urine Leukocyte Esterase Negative (NEGATIVE) Urine RBC 2 /HPF (0-2/HPF) Urine WBC 1 /HPF (0-5/HPF) Urine Squamous Epithelial Cells Many /LPF (</=FEW) Urine Bacteria Negative /HPF (NONE-FEW) Urine Mucus Few /HPF (NONE-FEW) White Blood Count 6.2 k/uL (4.5-11.0) Red Blood Count 4.67 M/uL (4.00-5.60) Hemoglobin 16.1 g/dL (14.0-18.0) Hematocrit 47.2 % (42.0-52.0) Mean Corpuscular Volume 101.1 fL (80.0-96.0) Mean Corpuscular Hemoglobin 34.6 pg (26.0-33.0) Mean Corpuscular Hemoglobin Concent 34.2 g/dL (32.0-36.0) Red Cell Distribution Width 15.4 % (11.5-14.5) Platelet Count 273 K/uL (150-450) Mean Platelet Volume 8.4 fL (7.2-11.1) Neutrophils (%) (Auto) 59.9 % (39.4-72.5) Lymphocytes (%) (Auto) 26.4 % (17.6-49.6) Monocytes (%) (Auto) 11.9 % (4.1-12.4) Eosinophils (%) (Auto) 1.5 % (0.4-6.7) Basophils (%) (Auto) 0.3 % (0.3-1.4) Nucleated RBC Relative Count (auto) 0.1 /100WBC Neutrophils # (Auto) 3.7 K/uL (2.0-7.4) Lymphocytes # (Auto) 1.6 K/uL (1.3-3.6) Monocytes # (Auto) 0.7 K/uL (0.3-1.0) Eosinophils # (Auto) 0.1 K/uL (0.0-0.5) Basophils # (Auto) 0.0 K/uL (0.0-0.1) Nucleated RBC Absolute Count (auto) 0.00 K/uL Glomerular Filtration Rate Calc > 60.0 Calcium Level 10.0 mg/dl (8.4-10.2) Total Bilirubin 0.7 mg/dl (0.2-1.3) Aspartate Amino Transf (AST/SGOT) 27 U/L (0-35) Alanine Aminotransferase (ALT/SGPT) 35 U/L (0-56) Alkaline Phosphatase 86 U/L (0-126) Total Protein 7.9 g/dl (6.3-8.2) Albumin 4.0 g/dl (3.5-5.0) Amylase Level 106 U/L (0-110) Lipase 284 U/L (23-300) Urinalysis Test 03/30/19 02:30 Urine Color Yellow Urine Clarity Clear Urine pH 5.0 pH (4.8-9.5) Urine Specific [place] 1.015 Urine Protein Negative mg/dL (NEGATIVE) Urine Glucose (UA) Negative mg/dL (NEGATIVE) Urine Ketones 20 mg/dL (NEGATIVE) Urine Blood Negative (NEGATIVE) Urine Nitrite Negative (NEGATIVE) Urine Bilirubin Negative (NEGATIVE) Urine Urobilinogen Negative mg/dL (0.2-1.9) Urine Leukocyte Esterase Negative (NEGATIVE) Urine RBC 2 /HPF (0-2/HPF) Urine WBC 1 /HPF (0-5/HPF) Urine Squamous Epithelial Cells Many /LPF (</=FEW) Urine Bacteria Negative /HPF (NONE-FEW) Urine Mucus Few /HPF (NONE-FEW) EKG/Imaging Imaging COMPUTED TOMOGRAPHY CHEST, ABDOMEN AND PELVIS WITH INTRAVENOUS CONTRAST DATE OF EXAM: 03/30/2019 10:48 PM. INDICATION: Epigastric and right upper quadrant pain, vomiting. COMPARISON: CT abdomen and pelvis 03/24/2019 chest radiographs 05/23/2018, chest CT 02/19/2018. TECHNIQUE: Contrast enhanced chest, abdomen and pelvis CT performed during the injection of 75 ml of Isovue 370. Sagittal and coronal reconstructions were performed. One of the following dose optimization techniques was utilized in the performance of this exam: Automated exposure control; adjustment of the mA and/or kV according to the patient's size; or use of an iterative reconstruction technique. Specific details can be referenced in the facility's radiology CT exam operational policy. FINDINGS: CHEST: Thyroid: Diminutive Thoracic inlet: No adenopathy Heart and great vessels: Heart size is normal. Small volume pericardial effusion. Nonaneurysmal aorta. Although not performed with timing for evaluation of the pulmonary arteries, within the right lower lobe pulmonary artery, there is a suggestion of thrombus extending into basal segmental arteries as can be seen on image 57 series 2. Mediastinum and cornelio: Persistent marked dilation of the esophagus with wall thickening of the mid to distal portion. The esophagus is filled with fluid and debris. This is similar in appearance to at least February 2018. Lungs and pleura: Mild tree-in-bud opacification in the left base. Mild scarring at the right apex. 5 mm subpleural nodule in the right lower lobe on image 55 series 2 similar to 2018 and likely does not require follow-up. Calcified granuloma in the right base. Breast and axilla: No adenopathy. ABDOMEN AND PELVIS: Liver and hepatic vasculature: Normal. Gallbladder and bile ducts: Probable stones and sludge in the gallbladder lumen. No evidence of cholecystitis. Spleen: Multiple small hypoattenuation is similar to at least one year prior indicating benign etiology, possibly hemangiomas. Pancreas: Nonfocal. Adrenals: Normal. Kidneys, ureters and bladder: No hydronephrosis. No hydroureter. Redemonstration bladder wall thickening. Nonobstructing left renal calculi. Retroperitoneum and aorta: Nonaneurysmal aorta. No adenopathy. GI tract, mesentery and peritoneum: Nonacute. Normal appendix. Prostate and seminal vesicles: Normal. Bones and soft tissues: No acute abnormality or suspicious lesion. Chronic compression deformity of L1 with mild retropulsion. IMPRESSION: 1. Suspicious for pulmonary embolism involving the right lower lobe pulmonary artery extending into basal segmental arteries. 2. Chronically dilated fluid-filled and debris-filled esophagus similar in appearance to at least February 2018. 3. Mild tree-in-bud opacification at the left lung base is likely infectious or inflammatory. Given the esophageal dilation, aspiration is a consideration. 4. Small volume pericardial effusion. 5. Redemonstration of wall thickening involving the urinary bladder which could be related to neurogenic bladder or chronic outlet obstruction. Correlate with any suspicion of cystitis. 6. Additional nonacute findings as described. Dr. Cerda discussed this case with CARY GUNN on 03/31/2019 12:02 AM. Report Dictated By: Siddharth Cerda MD at 03/30/2019 11:40 PM GALLBLADDER HISTORY: Epigastric and right upper quadrant pain. Vomiting. History of gallstones. COMPARISON: CT chest, abdomen, and pelvis 03/30/2019. CT abdomen pelvis 03/24/2019. No prior ultrasound. FINDINGS: PANCREAS: Normal. UPPER ABDOMINAL AORTA AND IVC: Aorta and IVC are patent by color Doppler and are unremarkable. LIVER: Normal. The portal vein is patent with normal hepatopetal flow. Hepatic vein is patent. GALLBLADDER: There are numerous small mobile stones within the gallbladder. No pericholecystic fluid or gallbladder wall thickening. Positive sonographic Bah sign. COMMON DUCT: Normal, measuring 4 mm. RIGHT KIDNEY: Normal in size and echogenicity. It measures 9.6 x 4.3 x 4.5 cm. No hydronephrosis. Normal resistive index, measuring 0.7. ASCITES: None. ADDITIONAL FINDINGS: There is a pericardial effusion that measures 1.4 cm maximal thickness. IMPRESSION: 1. Cholelithiasis. Patient had a positive sonographic Bah sign, but there are no ultrasound findings indicate cholecystitis. 2. 1.4 cm pericardial effusion. Report Dictated By: Ricarda Brandt at 03/31/2019 12:42 AM ED Course/Re-evaluation Clinical Indication for ER IV: Hydration, IV Access ED Course Initial evaluation showed vital signs very stable. Appears to have upper abdominal pain. Labs and imaging were ordered. Decided to do both CT scan of the chest, abdomen, and pelvis as well as an ultrasound of the gallbladder given his past history and current symptoms. Labs are unremarkable, mild dehydration with an elevated BUN to creatinine ratio and some ketones on the urine. Blood pressures been fluctuating. Seems to drop when he is sleeping as does his oxygen but he is able to get up and go to the bathroom and has no dizziness or deficits and blood pressure seems to come back up into the 110/60 range when he is awake. A liter of normal saline was given to help with his dehydration. Later a second liter was given. For transport he is going to be on the normal saline drip for TKO. He is received a dose of Zofran for nausea. He does not really have any distress unless he is trying to eat or drink something and cannot keep anything down. He is currently nothing by mouth. Oxygen desats a little with sleeping, improved with oxygen 2lnc. I discussed the case with his sister who is his power of finance attorney. Her name is Angela Chandler, lives in [place], [place], and her phone number is . She indicated that prior GI consultations have been done. Most recent was Dr. Story. The first GI specialist recommended that nothing else could be done other than a feeding tube. Dr. Story suggested further evaluation with manometry, possible Botox, possible myotomies, and possible surgery. They were in the process over the last few weeks of trying to get set up with a senior java programmer analyst with [facility] and looking in [facility], looks like they were going to be scheduled with the [facility] with Gastroenterology. Discussed the case with general surgery and our hospitalist, but then called and spoke with Dr. Trivedi, [facility]. After reviewing the case with him, he indicated that it would be appropriate to transfer to them for further workup and interventions. Discussed with Dr. Connelly, the hospitalist, who accepted the patient for transfer. I called his sister and gave her the information regarding the transfer to [facility]. Included in the transfer packed are the last history and physical and operative report from the EGD and dilation by Dr. Story last month. Decision to Disposition Date: Mar 31, 2019 Decision to Disposition Time: 03:43 Depart Departure Latest Vital Signs Vital Signs Date Time Temp Pulse Resp B/P (MAP) Pulse Ox O2 Delivery O2 Flow Rate FiO2 03/31/19 05:00 102/65 (77) 03/31/19 04:49 64 100 03/30/19 22:26 98.3 20 Impression: Primary Impression: Achalasia of esophagus Condition: Condition Unchanged Disposition: XFER TO ACUTE CARE HOSPITAL Referrals: CYNDEE ROMAN (PCP) CARY GUNN MD Mar 30, 2019 23:30
--- NOTE | 2019-03-31 00:07 | RADIOLOGY IMAGING REPORT ---
FACILITY: [facility] PATIENT NAME: Jayden Bhatti : 1965 MR: [id number] V: [id number] EXAM DATE: ORDERING PHYSICIAN: CARY GUNN TECHNOLOGIST: Location: [facility] Patient: Jayden Bhatti : 1965 Visit/Account:[id number] Date of Sevice: 03/30/2019 COMPUTED TOMOGRAPHY CHEST, ABDOMEN AND PELVIS WITH INTRAVENOUS CONTRAST DATE OF EXAM: 03/30/2019 10:48 PM. INDICATION: Epigastric and right upper quadrant pain, vomiting. COMPARISON: CT abdomen and pelvis 03/24/2019 chest radiographs 05/23/2018, chest CT 02/19/2018. TECHNIQUE: Contrast enhanced chest, abdomen and pelvis CT performed during the injection of 75 ml of Isovue 370. Sagittal and coronal reconstructions were performed. One of the following dose optimiza tion techniques was utilized in the performance of this exam: Automated exposure control; adjustment of the mA and/or kV according to the patient's size; or use of an iterative reconstruction technique . Specific details can be referenced in the facility's radiology CT exam operational policy. FINDINGS: CHEST: Thyroid: Diminutive Thoracic inlet: No adenopathy Heart and great vessels: Heart size is normal. Small volume pericardial effusion. Nonaneurysmal ao rta. Although not performed with timing for evaluation of the pulmonary arteries, within the right l ower lobe pulmonary artery, there is a suggestion of thrombus extending into basal segmental arteries as can be seen on image 57 series 2. Mediastinum and cornelio: Persistent marked dilation of the esophagus with wall thickening of the mid to distal portion. The esophagus is filled with fluid and debris. This is similar in appearance to at least February 2018. Lungs and pleura: Mild tree-in-bud opacification in the left base. Mild scarring at the right apex. 5 mm subpleural nodule in the right lower lobe on image 55 series 2 similar to 2018 and likely does not require follow-up. Calcified granuloma in the right base. Breast and axilla: No adenopathy. ABDOMEN AND PELVIS: Liver and hepatic vasculature: Normal. Gallbladder and bile ducts: Probable stones and sludge in the gallbladder lumen. No evidence of cho lecystitis. Spleen: Multiple small hypoattenuation is similar to at least one year prior indicating benign etiol ogy, possibly hemangiomas. Pancreas: Nonfocal. Adrenals: Normal. Kidneys, ureters and bladder: No hydronephrosis. No hydroureter. Redemonstration bladder wall thic kening. Nonobstructing left renal calculi. Retroperitoneum and aorta: Nonaneurysmal aorta. No adenopathy. GI tract, mesentery and peritoneum: Nonacute. Normal appendix. Prostate and seminal vesicles: Normal. Bones and soft tissues: No acute abnormality or suspicious lesion. Chronic compression deformity of L1 with mild retropulsion. IMPRESSION: 1. Suspicious for pulmonary embolism involving the right lower lobe pulmonary artery extending into basal segmental arteries. 2. Chronically dilated fluid-filled and debris-filled esophagus similar in appearance to at least Ma y 2018. 3. Mild tree-in-bud opacification at the left lung base is likely infectious or inflammatory. Given the esophageal dilation, aspiration is a consideration. 4. Small volume pericardial effusion. 5. Redemonstration of wall thickening involving the urinary bladder which could be related to neurog enic bladder or chronic outlet obstruction. Correlate with any suspicion of cystitis. 6. Additional nonacute findings as described. Dr. Cerda discussed this case with CARY GUNN on 03/31/2019 12:02 AM. Report Dictated By: Siddharth Cerda MD at 03/30/2019 11:40 PM Report E-Signed By: Siddharth Cerda MD at 03/31/2019 12:02 AM WSN:[id number]
[2019-03-31] MEDS ORDERED: LYTE60SP MM (00:13)
[2019-03-31] MEDS ORDERED: FLUC200T56 PO (00:13)
--- NOTE | 2019-03-31 00:50 | RADIOLOGY IMAGING REPORT ---
FACILITY: [facility] PATIENT NAME: Jayden Bhatti : 1965 MR: [id number] V: [id number] EXAM DATE: ORDERING PHYSICIAN: CARY GUNN TECHNOLOGIST: Location: [facility] Patient: Jayden Bhatti : 1965 Visit/Account:[id number] Date of Sevice: 03/30/2019 GALLBLADDER HISTORY: Epigastric and right upper quadrant pain. Vomiting. History of gallstones. COMPARISON: CT chest, abdomen, and pelvis 03/30/2019. CT abdomen pelvis 03/24/2019. No prior ultrasound. FINDINGS: PANCREAS: Normal. UPPER ABDOMINAL AORTA AND IVC: Aorta and IVC are patent by color Doppler and are unremarkable. LIVER: Normal. The portal vein is patent with normal hepatopetal flow. Hepatic vein is patent. GALLBLADDER: There are numerous small mobile stones within the gallbladder. No pericholecystic fluid or gallbladder wall thickening. Positive sonographic Bah sign. COMMON DUCT: Normal, measuring 4 mm. RIGHT KIDNEY: Normal in size and echogenicity. It measures 9.6 x 4.3 x 4.5 cm. No hydronephrosis. Nor mal resistive index, measuring 0.7. ASCITES: None. ADDITIONAL FINDINGS: There is a pericardial effusion that measures 1.4 cm maximal thickness. IMPRESSION: 1. Cholelithiasis. Patient had a positive sonographic Bah sign, but there are no ultrasound findin gs indicate cholecystitis. 2. 1.4 cm pericardial effusion. Report Dictated By: Ricarda Brandt at 03/31/2019 12:42 AM Report E-Signed By: Ricarda Brandt at 03/31/2019 12:46 AM WSN:[id number]
[2019-03-31] MEDS ORDERED: NS(*) 0.9% 1000 ML BAG 1,000 ML IV ONE ×2 (02:55→03:30)
[2019-03-31] MEDS ORDERED: predniSONE 20 MG TAB PO ONE (03:15)
[2019-03-31 05:00] VITALS: BP 102/65
== END 2019-03-31 05:20 | disposition short-term general hospital (02) ==
LOC: ER 23:00
DX: K22.0 Achalasia of cardia (principal); E86.0 Dehydration
CPT/HCPCS: 76705; 81001; 82040; 82150; 82247; 82310; 82374; 82435; 82565; 82947; 83690; 84075; 84132; 84155; 84295; 84450; 84460; 84520; 85025; 96361; 96374; 99285; J2405; J7030; Q9967

== ENCOUNTER → 2019-03-31 | Outpatient (CLI) | payer MEDICARE, MEDICAID ==
[2018-02-20 09:12] VITALS: BMI 30.4
[~2019-03-31] MED LIST changes: +FLUC200T56 PO
== END ==
LOC: AMB 05:05
PROVIDERS: ATTEND Nurse Practitioner
DX: K22.0 Achalasia of cardia (principal)
CPT/HCPCS: A0425; A0426